=== PATIENT | female | born 1930 | race Caucasian/White ===

== ENCOUNTER 2020-09-29 13:51 | Inpatient (IN) | payer MEDICARE, OTHER ==
--- NOTE | 2020-09-29 14:12 | EDM.PDOC ---
ED HPI GENERAL MEDICAL PROBLEM - General Chief Complaint: Cardiovascular Problem Stated Complaint: SOB Time Seen by Provider: 09/29/20 13:56 Source of Information: Reports: Patient History Limitations: Reports: No Limitations - History of Present Illness INITIAL COMMENTS - FREE TEXT/NARRATIVE: 89-year-old female presents to the ED with complaints of feeling short of breath gradually worsening over the last 3 weeks. Associated orthopnea and PND. She denies feeling any sense of chest pain or discomfort. She does have a nonproductive cough intermittently. Feels dizzy lightheaded and short of breath. Really has not appreciating weakness in her lower extremities. She was at the walk-in clinic and they recognized an elevated irregular pulse and sent her probably to the ED. Patient lives alone at home attends her garden and she is very active. She states that something is not right. She has never had any similar problems in the past. Onset: Gradual Onset Date: 09/07/20 (Believe dyspnea started around 07 September.) Duration: Day(s):, Getting Worse Location: Reports: Chest (Primarily dyspnea even at rest worsened by exertion. Associated orthopnea and PND.) Quality: Reports: Other (Aleksandra even at rest.) Severity: Moderate Improves with: Reports: Rest (Who is at rest a little bit but the last 3 to 4 days it does not seem to get better even with resting.) Worsens with: Reports: Movement (It was getting worse on exertion but now it is worse with even minimal exertion such as walking to the bathroom.) Context: Reports: Other (Gradual onset of dyspnea over the last 3 weeks.). Denies: Activity, Exercise, Lifting, Sick Contact, Trauma Associated Symptoms: Reports: Cough, Loss of Appetite, Malaise (Unproductive), Nausea/Vomiting (For nausea no vomiting.), Shortness of Breath (Decrease in appetite.), Weakness (Generalized sense of weakness.). Denies: Confusion, Chest Pain, cough w sputum, Diaphoresis, Fever/Chills, Headaches, Rash, Seizure, Syncope Treatments HAND CEMENTER: Reports: Other (see below) (No recent changes to any of her medications.) - Related Data Allergies Allergy/AdvReac Type Severity Reaction Status Date / Time aspirin Allergy Mild Abdominal Verified 09/29/20 14:37 Pain Home Meds: Home Meds Alendronate [Fosamax] 70 mg PO WEEKLY 09/29/20 [History] Brimonidine Tartrate/Timolol [Combigan Eye Drops] 1 drop EYERT BID 09/29/20 [History] Levothyroxine [Synthroid] 50 mcg PO ACBREAKFAST 09/29/20 [History] Pantoprazole Sodium [Protonix] 40 mg PO DAILY 09/29/20 [History] Simvastatin 20 mg PO DAILY 09/29/20 [History] amLODIPine [Norvasc] 5 mg PO DAILY 09/29/20 [History] Past Medical History HEENT History: Reports: Glaucoma, Other (See Below) (glasses) Cardiovascular History: Reports: High Cholesterol, Hypertension, SOB on Ex ertion. 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 She is to smoke when she was a late teenager and early adult kearns.) Gastrointestinal History: Reports: GERD, Hiatal Hernia Genitourinary History: Denies: Acute Renal Failure, Diabetic Nephropathy, Hy dronephrosis Musculoskeletal History: Reports: Osteoarthritis, Osteoporosis Endocrine/Metabolic History: Reports: Hypothyroidism Social & Family History - Tobacco Use Tobacco Use Status *Q: Former Tobacco User (She used tobacco in her late teenage years and early adult kearns.) Tobacco Use Within Last Twelve Months: Cigarettes - Living Situation & Occupation Living situation: Reports: Occupation: Retired Social History Comment: Patient resides in her own home here in [place]. She is very active in her home and outside the home gardening and doing her yard. ED ROS GENERAL - Review of Systems Review Of Systems: See Below Constitutional: Reports: Malaise, Weakness, Fatigue, Decreased Appetite (Months worse than normal the last 3 weeks. They decreased appetite.). Denies: Fever, Chills HEENT: Reports: Glasses, Other (History of glaucoma and uses eyedrops daily.) Respiratory: Reports: Shortness of Breath, Cough. Denies: Wheezing (See history of present illness.), Pleuritic Chest Pain, Sputum, Hemoptysis Cardiovascular: Reports: Blood Pressure Problem, Orthopnea (Chronic hypertension). Denies: Chest Pain (Nonproductive), Claudication, Edema, Lightheadedness, Palpitations Endocrine: Reports: Fatigue (She is not aware of any palpitations.), Other (History of hypothyroidism and is on levothyroxine treatment.) GI/Abdominal: Reports: Other (History of GERD well-controlled with proton pump inhibitor.) : Reports: Frequency, Incontinence (There urgent continence.), Urgency Musculoskeletal: Reports: Neck Pain, Shoulder Pain, Back Pain, Joint Pain (Knees and hips at times.) Skin: Reports: No Symptoms Neurological: Reports: No Symptoms, Weakness. Denies: Confusion, Dizziness, Headache, Numbness, Syncope, Tingling, Difficulty Walking (Creased weakness as of late associate with dyspnea.) Psychiatric: Reports: No Symptoms Hematologic/Lymphatic: Reports: No Symptoms Immunologic: Reports: No Symptoms ED EXAM, GENERAL - Physical Exam Exam: See Below Exam Limited By: No Limitations General Appearance: Alert, WD/WN, Mild Distress (Patient is working a little hard to breathe.), Other (Blood pressure is is 121/102. Temperature was 36.3 degrees. Heart rate is atrial fibrillation with a rapid ventricular rate as high as 165/min. Respiratory was 18-22 with O2 sats of 90% room air. Patient was placed on oxygen 2 L/min by nasal cannula.) Eye Exam: Bilateral Eye: Normal Inspection (No blepharal pallor or scleral icterus.), PERRL Throat/Mouth: Normal Inspection, Normal Lips, Normal Oropharynx, Other (Patient has a venous varicosity right lower lip 8 mm in diameter.). No: Normal Teeth Head: Atraumatic, Normocephalic Neck: Normal Inspection, Limited Range of Motion (Patient has lost 10 degrees forward flexion 10 degrees extension 10 degrees lateral rotation and), Tender Lateral (Her bilateral cervical spine she states no worse than normal.). No: Supple, Full Range of Motion, Carotid Bruit, Lymphadenopathy (L), Lymphadenopath y (R) Respiratory/Chest: No Accessory Muscle Use, Respiratory Distress (Tachypnea at rest with O2 sats of 90% room air. Improved sats to 94% on oxygen at 2 L/min by nasal cannula.), Decreased Breath Sounds (Creased breath sounds to the lower 25% in lung fermin bilaterally.), Rales (Scattered). No: Lungs Clear, Rhonchi, Wheezing ( mild crackles both lung bases.) Cardiovascular: No JVD, No Murmur, Irregularly Irregular (Heart rate is atrial fibrillation on the monitor with a rapid ventricular rate as high as 165 bpm.). No: Regular Rate, Rhythm, No Edema, No Gallop Peripheral Pulses: 2+: Carotid (L), Carotid (R), Posterior Tibial (L), Posterior Tibial (R), Dorsalis Pedis (L), Dorsalis Pedis (R) GI/Abdominal: Normal Bowel Sounds, Soft, Non-Tender, No Organomegaly. No: No Mass, Pelvis Stable, Guarding, Rigid, Rebound, Tender Back Exam: Decreased Range of Motion, Other (Mild kyphosis thoracic spine with scoliosis of the thoracic and lumbar spine). No: Full Range of Motion, CVA Tenderness (L) ( with compensatory curves.), CVA Tenderness (R) Extremities: Normal Inspection, Pedal Edema (Pedal edema at the ankles.), Limited Range of Motion (Wrist range of motion with internal/external rotation of both hips and knees with osteoarthritic changes. Not real tender at this time) Neurological: Alert, Oriented, CN II-XII Intact, Normal Cognition Psychiatric: Normal Affect, Normal Mood Skin Exam: Warm, Dry, Intact, Normal Color, No Rash #1 Interpretation EKG Date: 09/29/20 Time: 14:04 Rhythm: A-Fib (With rate of 75 to 165/min) Rate (Beats/Min): 142 [place]: RAD-Right [place] Deviation (Mild right axis deviation 97 degrees) P-Wave: Variable QRS: Other (Q waves V1 and near Q wave V2 to V5. Consider old anteroseptal myocardial infarction.) ST-T: Other (Acute repolarization abnormality most prominent in leads V2 to V4 due to the rapid rate. Decreased voltage limb leads) QT: Prolonged (Moderately prolonged but skewed by rapid rate) EKG Interpretation Comments: Abnormal ECG Course - Vital Signs Last Recorded V/S: Last Vital Signs Temp 36.4 C 09/29/20 20:00 Pulse 92 09/29/20 18:00 Resp 18 09/29/20 20:00 BP 105/58 L 09/29/20 20:15 Pulse Ox 93 L 09/29/20 19:00 - Orders/Labs/Meds Orders: Active Orders 24 hr Category Date Time Status Cardiac Monitoring [RC] CONTINUOUS Care 09/29/20 16:21 Active Height and Weight [RC] 04 Care 09/29/20 16:21 Active Intake and Output [RC] 04,16 Care 09/29/20 16:21 Active Oxygen Therapy [RC] ASDIRECTED Care 09/29/20 14:10 Active Pulse Oximetry [RC] CONTINUOUS Care 09/29/20 16:21 Active RT BiPAP/CPAP [RC] ASDIRECTED Care 09/29/20 15:49 Active Up With Assistance [RC] ASDIRECTED Care 09/29/20 16:21 Active VTE/DVT Education [RC] 09 Care 09/29/20 16:21 Active PT Evaluation and Treatment [CONS] Routine Cons 09/29/20 16:21 Active Respiratory Care Assess and Treatment [CONS] Routine Cons 09/29/20 16:21 Active Heart Healthy Diet [DIET] Diet 09/29/20 Dinner Active Chest 1V Frontal [CR] Stat Exams 09/29/20 15:30 Taken Echo Comp wo Cont [US] Routine Exams 10/02/20 07:30 Ordered BASIC METABOLIC PANEL,BMP [CHEM] DAILY Lab 09/30/20 06:00 Ordered BASIC METABOLIC PANEL,BMP [CHEM] DAILY Lab 10/01/20 06:00 Ordered BASIC METABOLIC PANEL,BMP [CHEM] DAILY Lab 10/02/20 06:00 Ordered BASIC METABOLIC PANEL,BMP [CHEM] DAILY Lab 10/03/20 06:00 Ordered CBC WITH AUTO DIFF [HEME] DAILY Lab 09/30/20 06:00 Ordered CBC WITH AUTO DIFF [HEME] DAILY Lab 10/01/20 06:00 Ordered CBC WITH AUTO DIFF [HEME] DAILY Lab 10/02/20 06:00 Ordered CBC WITH AUTO DIFF [HEME] DAILY Lab 10/03/20 06:00 Ordered Acetaminophen [TylenoL] Med 09/29/20 16:21 Active 650 mg PO Q4H PRN Apixaban [Eliquis] Med 09/29/20 21:00 Active 2.5 mg PO BID Diltiazem [Cardizem] 100 mg Med 09/29/20 15:00 Active Sodium Chloride 0.9% [Normal Saline] 100 ml IV TITRATE Diltiazem [Cardizem] 100 mg Med 09/29/20 16:30 Active Sodium Chloride 0.9% [Normal Saline] 100 ml IV TITRATE Ondansetron [Zofran] Med 09/29/20 16:21 Active 4 mg IV Q4H PRN Sodium Chloride 0.9% [Saline Flush] Med 09/29/20 14:11 Active 10 ml FLUSH ASDIRECTED PRN Peripheral IV Insertion Adult [OM.PC] Stat Oth 09/29/20 14:10 Ordered Resuscitation Status Routine Resus Stat 09/29/20 16:21 Ordered Medication Orders Acetaminophen (Acetaminophen 325 Mg Tab) 650 mg PO Q4H PRN PRN Reason: Pain (Mild 1-3)/fever Apixaban (Apixaban 2.5 Mg Tab) 2.5 mg PO BID LINDA Last Admin: 09/29/20 20:32 Dose: 2.5 mg Documented by: LENY Furosemide (Furosemide 20 Mg/2 Ml Vial) 20 mg IVPUSH BID LINDA Diltiazem HCl 100 mg/ Sodium (Chloride) 100 mls @ 10 mls/hr IV TITRATE LINDA; Protocol Last Titration: 09/29/20 20:00 Dose: 0 mg/hr, 0 mls/hr Documented by: Titration: 09/29/20 19:00 Dose: 5 mg/hr, 5 mls/hr Documented by: Admin: 09/29/20 15:00 Dose: 10 mg/hr, 10 mls/hr Documented by: ETHAN Diltiazem HCl 100 mg/ Sodium (Chloride) 100 mls @ 5 mls/hr IV TITRATE LINDA; Protocol Ceftriaxone Sodium 1 gm/ (Sodium Chloride) 100 mls @ 200 mls/hr IV Q24H LINDA Last Admin: 09/29/20 18:05 Dose: 200 mls/hr Documented by: UNIQUE Levothyroxine Sodium (Levothyroxine 50 Mcg Tab) 50 mcg PO ACBREAKFAST LINDA Metoprolol Tartrate (Metoprolol Tartrate 5 Mg/5 Ml Sdv) 5 mg IVPUSH Q6H PRN PRN Reason: Tachycardia Non-Formulary Medication (Brimonidine Tartrate/Timolol [Combigan 0.2%-0.5% Eye Drops]) 1 drop OP BID [facility] Last Admin: 09/29/20 20:32 Dose: Not Given Documented by: LENY Non-Formulary Medication (Pantoprazole Sodium) 40 mg PO DAILY LINDA Ondansetron HCl (Ondansetron 4 Mg/2 Ml Sdv) 4 mg IV Q4H PRN PRN Reason: Nausea/Vomiting Sodium Chloride (Sodium Chloride 0.9% 10 Ml Syringe) 10 ml FLUSH ASDIRECTED PRN PRN Reason: Keep Vein Open Last Admin: 09/29/20 14:14 Dose: 10 ml Documented by: ETHAN Labs: Laboratory Tests 09/29/20 09/29/20 09/29/20 Range/Units 14:00 14:00 14:00 WBC 9.04 (3.98-10.04) K/mm3 RBC 4.36 (3.98-5.22) M/mm3 Hgb 13.4 (11.2-15.7) gm/dl Hct 41.5 (34.1-44.9) % MCV 95.2 H (79.4-94.8) fl MCH 30.7 (25.6-32.2) pg MCHC 32.3 (32.2-35.5) g/dl RDW Std Deviation 49.1 H (36.4-46.3) fL Plt Count 275 (182-369) K/mm3 MPV 11.2 (9.4-12.3) fl Neut % (Auto) 75.9 H (34.0-71.1) % Lymph % (Auto) 12.9 L (19.3-51.7) % [place] % (Auto) 9.3 (4.7-12.5) % Eos % (Auto) 1.5 (0.7-5.8) Baso % (Auto) 0.2 (0.1-1.2) % Neut # (Auto) 6.85 H (1.56-6.13) K/mm3 Lymph # (Auto) 1.17 L (1.18-3.74) K/mm3 [place] # (Auto) 0.84 H (0.24-0.36) K/mm3 Eos # (Auto) 0.14 (0.04-0.36) K/mm3 Baso # (Auto) 0.02 (0.01-0.08) K/mm3 PT 10.9 (9.7-12.0) SECONDS INR 1.02 APTT (21.7-31.4) SECONDS Puncture Site ABG pH (7.35-7.45) ABG pCO2 (35.0-45.0) mmHg ABG pO2 (80.0-100.0) mmHg ABG HCO3 (22.0-26.0) meq/L ABG O2 Saturation (96.0-97.0) % ABG Base Excess (-2-2.0) Wally Test O2 Delivery Device Oxygen Flow Rate Sodium 138 (136-145) mEq/L Potassium 5.0 (3.5-5.1) mEq/L Chloride 105 (98-107) mEq/L Carbon Dioxide 24 (21-32) mEq/L Anion Gap 14.0 (5-15) BUN 27 H (7-18) mg/dL Creatinine 1.4 H (0.55-1.02) mg/dL Est Cr Clr Drug Dosing 19.95 mL/min Estimated GFR (MDRD) 35 (>60) mL/min BUN/Creatinine Ratio 19.3 H (14-18) Glucose 132 H (70-99) mg/dL Lactic Acid (0.4-2.0) mmol/L Calcium 9.1 (8.5-10.1) mg/dL Magnesium 2.3 (1.8-2.4) mg/dL Total Bilirubin 1.5 H (0.2-1.0) mg/dL AST 30 (15-37) U/L ALT 44 (14-59) U/L Alkaline Phosphatase 58 (46-116) U/L CK-MB (CK-2) 3.0 (0-3.6) ng/ml Troponin I < 0.017 (0.00-0.056) ng/mL C-Reactive Protein <0.2 (<1.0) mg/dL NT-Pro-B Natriuret Pep (0-450) pg/mL Total Protein 7.2 (6.4-8.2) g/dl Albumin 3.8 (3.4-5.0) g/dl Globulin 3.4 gm/dL Albumin/Globulin Ratio 1.1 (1-2) TSH 3rd Generation (0.358-3.74) uIU/mL Urine Color (Yellow) Urine Appearance (Clear) Urine pH (5.0-8.0) Ur Specific [place] (1.005-1.030) Urine Protein (Negative) Urine Glucose (UA) (Negative) Urine Ketones (Negative) Urine Occult Blood (Negative) Urine Nitrite (Negative) Urine Bilirubin (Negative) Urine Urobilinogen (0.2-1.0) Ur Leukocyte Esterase (Negative) U Hyaline Cast (Auto) (0-5) /lpf Urine RBC (0-5) /hpf Urine WBC (0-5) /hpf Ur Epithelial Cells (0-5) /hpf Urine Bacteria (FEW) /hpf Urine Mucus (FEW) /hpf SARS-CoV-2 RNA (CLAUDE) (NEGATIVE) 09/29/20 09/29/20 09/29/20 Range/Units 14:00 14:00 14:09 WBC (3.98-10.04) K/mm3 RBC (3.98-5.22) M/mm3 Hgb (11.2-15.7) gm/dl Hct (34.1-44.9) % MCV (79.4-94.8) fl MCH (25.6-32.2) pg MCHC (32.2-35.5) g/dl RDW Std Deviation (36.4-46.3) fL Plt Count (182-369) K/mm3 MPV (9.4-12.3) fl Neut % (Auto) (34.0-71.1) % Lymph % (Auto) (19.3-51.7) % [place] % (Auto) (4.7-12.5) % Eos % (Auto) (0.7-5.8) Baso % (Auto) (0.1-1.2) % Neut # (Auto) (1.56-6.13) K/mm3 Lymph # (Auto) (1.18-3.74) K/mm3 [place] # (Auto) (0.24-0.36) K/mm3 Eos # (Auto) (0.04-0.36) K/mm3 Baso # (Auto) (0.01-0.08) K/mm3 PT (9.7-12.0) SECONDS INR APTT (21.7-31.4) SECONDS Puncture Site ABG pH (7.35-7.45) ABG pCO2 (35.0-45.0) mmHg ABG pO2 (80.0-100.0) mmHg ABG HCO3 (22.0-26.0) meq/L ABG O2 Saturation (96.0-97.0) % ABG Base Excess (-2-2.0) Wally Test O2 Delivery Device Oxygen Flow Rate Sodium (136-145) mEq/L Potassium (3.5-5.1) mEq/L Chloride (98-107) mEq/L Carbon Dioxide (21-32) mEq/L Anion Gap (5-15) BUN (7-18) mg/dL Creatinine (0.55-1.02) mg/dL Est Cr Clr Drug Dosing mL/min Estimated GFR (MDRD) (>60) mL/min BUN/Creatinine Ratio (14-18) Glucose (70-99) mg/dL Lactic Acid (0.4-2.0) mmol/L Calcium (8.5-10.1) mg/dL Magnesium (1.8-2.4) mg/dL Total Bilirubin (0.2-1.0) mg/dL AST (15-37) U/L ALT (14-59) U/L Alkaline Phosphatase (46-116) U/L CK-MB (CK-2) (0-3.6) ng/ml Troponin I (0.00-0.056) ng/mL C-Reactive Protein (<1.0) mg/dL NT-Pro-B Natriuret Pep 5453 H (0-450) pg/mL Total Protein (6.4-8.2) g/dl Albumin (3.4-5.0) g/dl Globulin gm/dL Albumin/Globulin Ratio (1-2) TSH 3rd Generation 5.352 H (0.358-3.74) uIU/mL Urine Color (Yellow) Urine Appearance (Clear) Urine pH (5.0-8.0) Ur Specific [place] (1.005-1.030) Urine Protein (Negative) Urine Glucose (UA) (Negative) Urine Ketones (Negative) Urine Occult Blood (Negative) Urine Nitrite (Negative) Urine Bilirubin (Negative) Urine Urobilinogen (0.2-1.0) Ur Leukocyte Esterase (Negative) U Hyaline Cast (Auto) (0-5) /lpf Urine RBC (0-5) /hpf Urine WBC (0-5) /hpf Ur Epithelial Cells (0-5) /hpf Urine Bacteria (FEW) /hpf Urine Mucus (FEW) /hpf SARS-CoV-2 RNA (CLAUDE) Negative (NEGATIVE) 09/29/20 09/29/20 09/29/20 Range/Units 14:22 15:18 15:20 WBC (3.98-10.04) K/mm3 RBC (3.98-5.22) M/mm3 Hgb (11.2-15.7) gm/dl Hct (34.1-44.9) % MCV (79.4-94.8) fl MCH (25.6-32.2) pg MCHC (32.2-35.5) g/dl RDW Std Deviation (36.4-46.3) fL Plt Count (182-369) K/mm3 MPV (9.4-12.3) fl Neut % (Auto) (34.0-71.1) % Lymph % (Auto) (19.3-51.7) % [place] % (Auto) (4.7-12.5) % Eos % (Auto) (0.7-5.8) Baso % (Auto) (0.1-1.2) % Neut # (Auto) (1.56-6.13) K/mm3 Lymph # (Auto) (1.18-3.74) K/mm3 [place] # (Auto) (0.24-0.36) K/mm3 Eos # (Auto) (0.04-0.36) K/mm3 Baso # (Auto) (0.01-0.08) K/mm3 PT (9.7-12.0) SECONDS INR APTT (21.7-31.4) SECONDS Puncture Site Lt radial ABG pH 7.42 (7.35-7.45) ABG pCO2 29.1 L (35.0-45.0) mmHg ABG pO2 50.0 L (80.0-100.0) mmHg ABG HCO3 18.6 L (22.0-26.0) meq/L ABG O2 Saturation 50.0 L (96.0-97.0) % ABG Base Excess -4.3 L (-2-2.0) Wally Test Positive O2 Delivery Device Nasal cannula Oxygen Flow Rate 6.0 Sodium (136-145) mEq/L Potassium (3.5-5.1) mEq/L Chloride (98-107) mEq/L Carbon Dioxide (21-32) mEq/L Anion Gap (5-15) BUN (7-18) mg/dL Creatinine (0.55-1.02) mg/dL Est Cr Clr Drug Dosing mL/min Estimated GFR (MDRD) (>60) mL/min BUN/Creatinine Ratio (14-18) Glucose (70-99) mg/dL Lactic Acid 1.1 (0.4-2.0) mmol/L Calcium (8.5-10.1) mg/dL Magnesium (1.8-2.4) mg/dL Total Bilirubin (0.2-1.0) mg/dL AST (15-37) U/L ALT (14-59) U/L Alkaline Phosphatase (46-116) U/L CK-MB (CK-2) (0-3.6) ng/ml Troponin I (0.00-0.056) ng/mL C-Reactive Protein (<1.0) mg/dL NT-Pro-B Natriuret Pep (0-450) pg/mL Total Protein (6.4-8.2) g/dl Albumin (3.4-5.0) g/dl Globulin gm/dL Albumin/Globulin Ratio (1-2) TSH 3rd Generation (0.358-3.74) uIU/mL Urine Color Dark yellow (Yellow) Urine Appearance Slt cloudy H (Clear) Urine pH 5.5 (5.0-8.0) Ur Specific [place] > or = 1.030 (1.005-1.030) Urine Protein 2+ H (Negative) Urine Glucose (UA) Trace H (Negative) Urine Ketones Negative (Negative) Urine Occult Blood 2+ H (Negative) Urine Nitrite Negative (Negative) Urine Bilirubin 1+ H (Negative) Urine Urobilinogen 0.2 (0.2-1.0) Ur Leukocyte Esterase Trace H (Negative) U Hyaline Cast (Auto) 20-30 H (0-5) /lpf Urine RBC 20-30 H (0-5) /hpf Urine WBC 20-30 H (0-5) /hpf Ur Epithelial Cells 0-5 (0-5) /hpf Urine Bacteria Many H (FEW) /hpf Urine Mucus Many H (FEW) /hpf SARS-CoV-2 RNA (CLAUDE) (NEGATIVE) 09/29/20 Range/Units 16:23 WBC (3.98-10.04) K/mm3 RBC (3.98-5.22) M/mm3 Hgb (11.2-15.7) gm/dl Hct (34.1-44.9) % MCV (79.4-94.8) fl MCH (25.6-32.2) pg MCHC (32.2-35.5) g/dl RDW Std Deviation (36.4-46.3) fL Plt Count (182-369) K/mm3 MPV (9.4-12.3) fl Neut % (Auto) (34.0-71.1) % Lymph % (Auto) (19.3-51.7) % [place] % (Auto) (4.7-12.5) % Eos % (Auto) (0.7-5.8) Baso % (Auto) (0.1-1.2) % Neut # (Auto) (1.56-6.13) K/mm3 Lymph # (Auto) (1.18-3.74) K/mm3 [place] # (Auto) (0.24-0.36) K/mm3 Eos # (Auto) (0.04-0.36) K/mm3 Baso # (Auto) (0.01-0.08) K/mm3 PT (9.7-12.0) SECONDS INR APTT 23.5 (21.7-31.4) SECONDS Puncture Site ABG pH (7.35-7.45) ABG pCO2 (35.0-45.0) mmHg ABG pO2 (80.0-100.0) mmHg ABG HCO3 (22.0-26.0) meq/L ABG O2 Saturation (96.0-97.0) % ABG Base Excess (-2-2.0) Wally Test O2 Delivery Device Oxygen Flow Rate Sodium (136-145) mEq/L Potassium (3.5-5.1) mEq/L Chloride (98-107) mEq/L Carbon Dioxide (21-32) mEq/L Anion Gap (5-15) BUN (7-18) mg/dL Creatinine (0.55-1.02) mg/dL Est Cr Clr Drug Dosing mL/min Estimated GFR (MDRD) (>60) mL/min BUN/Creatinine Ratio (14-18) Glucose (70-99) mg/dL Lactic Acid (0.4-2.0) mmol/L Calcium (8.5-10.1) mg/dL Magnesium (1.8-2.4) mg/dL Total Bilirubin (0.2-1.0) mg/dL AST (15-37) U/L ALT (14-59) U/L Alkaline Phosphatase (46-116) U/L CK-MB (CK-2) (0-3.6) ng/ml Troponin I (0.00-0.056) ng/mL C-Reactive Protein (<1.0) mg/dL NT-Pro-B Natriuret Pep (0-450) pg/mL Total Protein (6.4-8.2) g/dl Albumin (3.4-5.0) g/dl Globulin gm/dL Albumin/Globulin Ratio (1-2) TSH 3rd Generation (0.358-3.74) uIU/mL Urine Color (Yellow) Urine Appearance (Clear) Urine pH (5.0-8.0) Ur Specific [place] (1.005-1.030) Urine Protein (Negative) Urine Glucose (UA) (Negative) Urine Ketones (Negative) Urine Occult Blood (Negative) Urine Nitrite (Negative) Urine Bilirubin (Negative) Urine Urobilinogen (0.2-1.0) Ur Leukocyte Esterase (Negative) U Hyaline Cast (Auto) (0-5) /lpf Urine RBC (0-5) /hpf Urine WBC (0-5) /hpf Ur Epithelial Cells (0-5) /hpf Urine Bacteria (FEW) /hpf Urine Mucus (FEW) /hpf SARS-CoV-2 RNA (CLAUDE) (NEGATIVE) Meds: Medications Generic Name Dose Route Start Last Admin Trade Name Freq PRN Reason Stop Dose Admin Acetaminophen 650 mg 09/29/20 16:21 Acetaminophen 325 Mg Tab PO Q4H PRN Pain (Mild 1-3)/fever Apixaban 2.5 mg 09/29/20 21:00 09/29/20 20:32 Apixaban 2.5 Mg Tab PO 2.5 mg BID LINDA Administration Furosemide 20 mg 09/30/20 09:00 Furosemide 20 Mg/2 Ml Vial IVPUSH BID LINDA Diltiazem HCl 100 mg/ Sodium 100 mls @ 10 mls/hr 09/29/20 15:00 09/29/20 20:00 Chloride IV 0 mg/hr TITRATE LINDA 0 mls/hr Titration Protocol 10 MG/HR Diltiazem HCl 100 mg/ Sodium 100 mls @ 5 mls/hr 09/29/20 16:30 Chloride IV TITRATE LINDA Protocol 5 MG/HR Ceftriaxone Sodium 1 gm/ 100 mls @ 200 mls/hr 09/29/20 18:00 09/29/20 18:05 Sodium Chloride IV 200 mls/hr Q24H LINDA Administration Levothyroxine Sodium 50 mcg 09/30/20 06:00 Levothyroxine 50 Mcg Tab PO ACBREAKFAST LINDA Metoprolol Tartrate 5 mg 09/29/20 16:27 Metoprolol Tartrate 5 Mg/5 Ml Sdv IVPUSH Q6H PRN Tachycardia Non-Formulary Medication 1 drop 09/29/20 21:00 09/29/20 20:32 Brimonidine Tartrate/Timolol [Combigan 0.2%-0.5% Eye Drops] OP Not Given BID LINDA Non-Formulary Medication 40 mg 09/30/20 09:00 Pantoprazole Sodium PO DAILY LINDA Ondansetron HCl 4 mg 09/29/20 16:21 Ondansetron 4 Mg/2 Ml Sdv IV Q4H PRN Nausea/Vomiting Sodium Chloride 10 ml 09/29/20 14:11 09/29/20 14:14 Sodium Chloride 0.9% 10 Ml Syringe FLUSH 10 ml ASDIRECTED PRN Administration Keep Vein Open Discontinued Medications Generic Name Dose Route Start Last Admin Trade Name Freq PRN Reason Stop Dose Admin Diltiazem HCl 10 mg 09/29/20 14:46 09/29/20 14:58 Diltiazem 50 Mg/10 Ml Sdv IVPUSH 09/29/20 14:47 10 mg ONETIME ONE Administration Furosemide Confirm 09/29/20 15:22 09/29/20 15:39 Furosemide 40 Mg/4 Ml Vial Administered 09/29/20 15:23 Not Given Dose 40 mg .ROUTE .STK-MED ONE Furosemide 40 mg 09/29/20 15:24 09/29/20 15:26 Furosemide 40 Mg/4 Ml Vial IVPUSH 09/29/20 15:25 40 mg NOW ONE Administration - Radiology Interpretation Free Text/Narrative:: 89-year-old female presents to the ED at the request of the walk-in clinic at [facility]. She went therapy claiming that she had increased shortness of breath over the last 3 weeks and something must be wrong. Evaluation revealed that her heart rate was elevated in the 140s to 150s and irregular suggesting underlying atrial fibrillation. No further investigation was completed and she was sent to the ED for further evaluation. On evaluation here she is indeed mildly hypoxic with O2 sats of 90% room air. She did smoke a bit when she was young and teenager and into early adult kearns. She has not smoked since that time. Clinically she has crackles both lung fermin. She has statement of COPD with slightly increased AP diameter of her chest. She denies sputum production but does have an intermittent nonproductive cough. No chest pain at any time in the last month or so. No past history of myocardial infarction or known coronary artery disease. She is indeed in atrial fibrillation up to 160 bpm. Plan she will receive Cardizem 10 mg IV once IV has been established. Tentatively she was started on a Cardizem drip at 10 mg/h. She will have a portable chest x-ray routine labs including cardiac markers and of course a BNP and serum magnesium and TSH. - Re-Assessments/Exams Free Text/Narrative Re-Assessment/Exam: 09/29/20 15:00 : CXR reveals moderate cardiomegally. Mild bilateral hyperinflation. Mild to moderate increaed vaculature in the presence of underlying emphysema --noted more so to the RLL --made more prominent as she is roatated to the Lt. does have atelectasis of left lung base. Questionable Lt pleural effusion as there is minimal blunting of the left costophrenic angle. Upper mediastinum is normal. No pneumothorax. On the side is an old healed right-sided rib fractures are seen within the right chest. Scoliosis noted within the spine with mild scattered degenerative changes. 09/29/20 15:29 White count is 9.04 with slight left shift of 75.9% neutrophils. Hemoglobin is 13.4 with hematocrit of 41.5. MCV is slightly elevated at 95.2. Platelet count is normal at 275,000. PT is 10.9 with an INR of 1.02. Sodium 138 with a potassium slightly elevated at 5.0. Chloride 105 with a bicarb 24. Anion gap is 14.0. BUN is 27 with a creatinine of 1.4. Estimated GFR is 35. Glucose 132. Lactic acid 1.1. Calcium 9.1. Magnesium 2.3. Bilirubin mildly elevated at 1.5. AST is 30 with an ALT of 44 and an alk phosphatase of 58. CK- MB fraction is 3.0 with a troponin I of less than 0.017. C-reactive protein is less than 0.2. BNP is 5453. Total protein is 7.2 with an albumin fraction of 3.8. Globulin is 3.4. TSH is elevated at 5.352 indicating subclinical hypothyroidism. COVID-19 screen is negative. Patient has developed worsening of her tachypnea and dyspnea. Heart rate has come under control at 99 200 bpm remaining in atrial fibrillation. O2 sats are down as low as 83% on 6 L/min by nasal cannula. Stat ABG and chest x-ray ordered. Also Lasix 40 mg IV stat. 09/29/20 15:34 Repeat portable chest x-ray reveals minimal change. There is perhaps a minimal pleural effusion appreciated in the right lung base at this time. No pneumothorax present. Reportedly O2 sats dropped to 70% in her room. She was switched to a nonrebreather mask at 15 L/min and achieved O2 sats of 94% and is still able to talk. Preparations were made for possible intubation on an urgent basis. I believe that slowing her heart rate down with Cardizem 10 mg IV bolus precipitated acute worsening of her congestive failure due to dropping both her preload and afterload. Blood pressure remains adequate at 110/79 but is much lower course than her normal systolic blood pressure 150-160min. ABGs have been ordered and done but are not yet reported. 09/29/20 15:44 Urinalysis shows slightly cloudy urine with 2+ protein 2+ occult blood 1+ bilirubin and trace of leukocyte esterase. There is 20-30 hyaline casts per high-power field 20-30 red blood cells per high-power field and 20-30 white blood cells per high-power field many bacteria appreciated. A urine culture has been ordered. Patient is asymptomatic at this time and will not be given antibiotics. Had ABGs done on 6 L/min by nasal cannula reveals a pH of 7.42. PCO2 was 29.1 with a PO2 of 50. O2 sats were 82.7%. 09/29/20 15:46 Patient is feeling much improved on the BiPAP at 12 over 6 mmHg. O2 sats are staying around 90 to 91%. She is able to talk and her color is improved. She does not feel near as just to make either. I spoke with Dr. Salazar on-call hospitalist and he will see her in the intensive care unit as soon as we can get her over there. She is on Cardizem 10 mg/hr and maintaining a blood pressure of 128/84. Heart rate is 78/min. He remains in atrial fibrillation. O2 sats 90 to 91% on BiPAP. Noted labs did reveal a elevated TSH indicating subclinical hypothyroidism but enough to require thyroid replacement hormone due to her age. 09/29/20 16:26 O2 sats are improved to 96% at this time. Heart rate is 87 and irregularily irregular with atrial fibrillation. Blood pressure has not been recorded for the last 10 minutes. She will be transferred to the intensive care unit at this time. Departure - Departure Time of Disposition: 16:50 Disposition: Admitted As Inpatient 68 Reason for Transfer *Q: Other Condition: Serious Clinical Impression: New onset atrial fibrillation, Subclinical hypothyroidism Congestive heart failure Qualifiers: Heart failure type: unspecified Heart failure chronicity: unspecified Qualified Code(s): I50.9 - Heart failure, unspecified Critical Care Note - Critical Care Note Total Time (mins): 20 (Patient's condition acutely decompensated within 20 minutes of receiving Cardizem 10 mg IV bolus. She appeared to develop sudden onset of's overwhelming dyspnea with a drop in her O2 sats to 85 and then as low as 70%. Was felt that the Cardizem dropped her preload and afterload precipitating worsening of her congestive failure. She has been likely dependent on a elevated heart rate of atrial fibrillation for several weeks.) Sepsis Event Note (ED) - Focused Exam Vital Signs: Vital Signs Temp Pulse Resp BP Pulse Ox 09/29/20 15:45 88 20 115/82 88 L 09/29/20 15:42 84 24 H 92 L 09/29/20 15:35 90 30 H 131/115 H 96 09/29/20 15:30 93 30 H 110/79 84 L 09/29/20 15:00 88 24 H 101/74 90 L 09/29/20 14:45 118 H 20 100/71 91 L 09/29/20 14:12 123 H 27 H 111/99 H 94 L 09/29/20 13:56 36.3 C 154 H 18 121/102 H 90 L - My Orders Last 24 Hours: My Active Orders 09/29/20 14:10 Oxygen Therapy [RC] ASDIRECTED Peripheral IV Insertion Adult [OM.PC] Stat 09/29/20 14:11 Sodium Chloride 0.9% [Saline Flush] 10 ml FLUSH ASDIRECTED PRN 09/29/20 15:00 Diltiazem [Cardizem] 100 mg Sodium Chloride 0.9% [Normal Saline] 100 ml IV TITRATE 09/29/20 15:30 Chest 1V Frontal [CR] Stat 09/29/20 15:49 RT BiPAP/CPAP [RC] ASDIRECTED - Assessment/Plan Last 24 Hours: My Active Orders 09/29/20 14:10 Oxygen Therapy [RC] ASDIRECTED Peripheral IV Insertion Adult [OM.PC] Stat 09/29/20 14:11 Sodium Chloride 0.9% [Saline Flush] 10 ml FLUSH ASDIRECTED PRN 09/29/20 15:00 Diltiazem [Cardizem] 100 mg Sodium Chloride 0.9% [Normal Saline] 100 ml IV TITRATE 09/29/20 15:30 Chest 1V Frontal [CR] Stat 09/29/20 15:49 RT BiPAP/CPAP [RC] ASDIRECTED
[2020-09-29] MEDS: Sodium Chloride 0.9% 10 ML Syringe FLUSH PRN (14:14)
--- NOTE | 2020-09-29 14:29 | CR ---
Chest: Portable view of the chest was obtained. Comparison: No prior chest imaging is available. Diffuse increased lung markings are noted. Slight atelectasis is seen within the left lung base. Questionable small left-sided pleural effusion is seen. Heart is felt to be minimally prominent. Upper mediastinum is normal. Old healed right-sided rib fractures are seen within the right chest. Scoliosis is noted within the spine with mild scattered degenerative change. Impression: 1. Findings as described above are suspicious for mild CHF. Please correlate if this matches clinically. 2. Slight atelectasis within the left lung base. 3. Other findings which are chronic as noted above. Diagnostic code #3
[2020-09-29] MEDS ORDERED: Diltiazem 50 MG/10 ML SDV IVPUSH ONE (14:46)
[2020-09-29] MEDS ORDERED: Diltiazem 100 MG in Sodium Chloride 0.9% 100 ML IV SCH ×2 (15:00→16:30)
[2020-09-29] MEDS ORDERED: Furosemide 40 MG/4 ML VIAL ONE (15:22)
[2020-09-29] MEDS ORDERED: Furosemide 40 MG/4 ML VIAL IVPUSH ONE (15:24)
[2020-09-29] MEDS ORDERED: Ondansetron 4 MG/2 ML SDV IV PRN (16:21)
[2020-09-29] MEDS ORDERED: Acetaminophen 325 MG Tab PO PRN (16:21)
--- NOTE | 2020-09-29 17:02 | PCM.HP.2 ---
H&P History of Present Illness - General Date of Service: 09/29/20 Admit Problem/Dx: Admission Diagnosis/Problem Admission Diagnosis/Problem Atrial fibrillation with rapid ventricular response Source of Information: Patient - History of Present Illness Initial Comments - Free Text/Narative: This is a 89F presenting for evaluation of dizziness. For the last 3 weeks she endorses generalized weakness and fatigue. She has dry cough. She endorses SOB and orthopnea. Denies chest pain, palpitations, nausea, vomiting, fever. She presented to ED today and was noted to be in Afib w/RVR. she was hypoxic and placed on BIPAP. CXR concerning for cardiomegaly. Notable labs included normal lactate. BNP elevated. Troponin WNL. She was given IV diltiazem and 40 mg IV lasix and admitted for further evaluation. She states she feels SOB has improved with BIPAP. Denies recent fall, headache, dizziness has improved. - Related Data Allergies/Adverse Reactions: Allergies Allergy/AdvReac Type Severity Reaction Status Date / Time aspirin Allergy Mild Abdominal Verified 09/29/20 14:37 Pain Home Medications: Home Meds Alendronate [Fosamax] 70 mg PO WEEKLY 09/29/20 [History] Brimonidine Tartrate/Timolol [Combigan Eye Drops] 1 drop EYERT BID 09/29/20 [History] Levothyroxine [Synthroid] 50 mcg PO ACBREAKFAST 09/29/20 [History] Pantoprazole Sodium [Protonix] 40 mg PO DAILY 09/29/20 [History] Simvastatin 20 mg PO DAILY 09/29/20 [History] amLODIPine [Norvasc] 5 mg PO DAILY 09/29/20 [History] Past Medical History HEENT History: Reports: Cataract, Impaired Vision Cardiovascular History: Reports: Hypertension Gastrointestinal History: Reports: GERD Other Musculoskeletal History: osteopenia Psychiatric History: Reports: Anxiety Endocrine/Metabolic History: Reports: Hypothyroidism Oncologic (Cancer) History: Reports: Colon - Infectious Disease History Infectious Disease History: Reports: Chicken Pox - Past Surgical History HEENT Surgical History: Reports: Cataract Surgery GI Surgical History: Reports: Appendectomy, Colon, Colonoscopy Social & Family History - Tobacco Use Tobacco Use Status *Q: Former Tobacco User Used Tobacco, but Quit: Yes Month/Year Tobacco Last Used: 02/1961 - Caffeine Use Caffeine Use: Reports: None - Recreational Drug Use Recreational Drug Use: No H&P Review of Systems - Review of Systems: Review Of Systems: Comprehensive ROS is negative, except as noted in HPI. Exam - Exam Exam: See Below - Vital Signs Vital Signs: Last Vital Signs Temp 97.3 F 09/29/20 13:56 Pulse 88 09/29/20 15:45 Resp 20 09/29/20 15:45 BP 115/82 09/29/20 15:45 Pulse Ox 88 L 09/29/20 15:45 Weight: 121 lb - Exam General: Alert, Oriented, Mild Distress HEENT: EOMI, Nares Patent Neck: Supple Lungs: Decreased Breath Sounds, Crackles Cardiovascular: Irregular Rhythm, Tachycardia GI/Abdominal Exam: Soft, Non-Tender, No Distention Back Exam: Normal Inspection Extremities: Normal Inspection, No Pedal Edema Skin: Warm, Dry, Intact Neurological: Cranial Nerves Intact, Normal Speech Neuro Extensive - Mental Status: Alert, Oriented x3, Normal Mood/Affect Neuro Extensive - Motor, Sensory, Reflexes: CN II-XII Intact Psychiatric: Alert, Normal Affect, Normal Mood - Patient Data Lab Results Last 24 hrs: Laboratory Results - last 24 hr 09/29/20 09/29/20 09/29/20 Range/Units 14:00 14:00 14:00 WBC 9.04 (3.98-10.04) K/mm3 RBC 4.36 (3.98-5.22) M/mm3 Hgb 13.4 (11.2-15.7) gm/dl Hct 41.5 (34.1-44.9) % MCV 95.2 H (79.4-94.8) fl MCH 30.7 (25.6-32.2) pg MCHC 32.3 (32.2-35.5) g/dl RDW Std Deviation 49.1 H (36.4-46.3) fL Plt Count 275 (182-369) K/mm3 MPV 11.2 (9.4-12.3) fl Neut % (Auto) 75.9 H (34.0-71.1) % Lymph % (Auto) 12.9 L (19.3-51.7) % [place] % (Auto) 9.3 (4.7-12.5) % Eos % (Auto) 1.5 (0.7-5.8) Baso % (Auto) 0.2 (0.1-1.2) % Neut # (Auto) 6.85 H (1.56-6.13) K/mm3 Lymph # (Auto) 1.17 L (1.18-3.74) K/mm3 [place] # (Auto) 0.84 H (0.24-0.36) K/mm3 Eos # (Auto) 0.14 (0.04-0.36) K/mm3 Baso # (Auto) 0.02 (0.01-0.08) K/mm3 PT 10.9 (9.7-12.0) SECONDS INR 1.02 APTT (21.7-31.4) SECONDS Puncture Site ABG pH (7.35-7.45) ABG pCO2 (35.0-45.0) mmHg ABG pO2 (80.0-100.0) mmHg ABG HCO3 (22.0-26.0) meq/L ABG O2 Saturation (96.0-97.0) % ABG Base Excess (-2-2.0) Wally Test O2 Delivery Device Oxygen Flow Rate Sodium 138 (136-145) mEq/L Potassium 5.0 (3.5-5.1) mEq/L Chloride 105 (98-107) mEq/L Carbon Dioxide 24 (21-32) mEq/L Anion Gap 14.0 (5-15) BUN 27 H (7-18) mg/dL Creatinine 1.4 H (0.55-1.02) mg/dL Est Cr Clr Drug Dosing 19.95 mL/min Estimated GFR (MDRD) 35 (>60) mL/min BUN/Creatinine Ratio 19.3 H (14-18) Glucose 132 H (70-99) mg/dL Lactic Acid (0.4-2.0) mmol/L Calcium 9.1 (8.5-10.1) mg/dL Magnesium 2.3 (1.8-2.4) mg/dL Total Bilirubin 1.5 H (0.2-1.0) mg/dL AST 30 (15-37) U/L ALT 44 (14-59) U/L Alkaline Phosphatase 58 (46-116) U/L CK-MB (CK-2) 3.0 (0-3.6) ng/ml Troponin I < 0.017 (0.00-0.056) ng/mL C-Reactive Protein <0.2 (<1.0) mg/dL NT-Pro-B Natriuret Pep (0-450) pg/mL Total Protein 7.2 (6.4-8.2) g/dl Albumin 3.8 (3.4-5.0) g/dl Globulin 3.4 gm/dL Albumin/Globulin Ratio 1.1 (1-2) TSH 3rd Generation (0.358-3.74) uIU/mL Urine Color (Yellow) Urine Appearance (Clear) Urine pH (5.0-8.0) Ur Specific [place] (1.005-1.030) Urine Protein (Negative) Urine Glucose (UA) (Negative) Urine Ketones (Negative) Urine Occult Blood (Negative) Urine Nitrite (Negative) Urine Bilirubin (Negative) Urine Urobilinogen (0.2-1.0) Ur Leukocyte Esterase (Negative) U Hyaline Cast (Auto) (0-5) /lpf Urine RBC (0-5) /hpf Urine WBC (0-5) /hpf Ur Epithelial Cells (0-5) /hpf Urine Bacteria (FEW) /hpf Urine Mucus (FEW) /hpf SARS-CoV-2 RNA (CLAUDE) (NEGATIVE) 09/29/20 09/29/20 09/29/20 Range/Units 14:00 14:00 14:09 WBC (3.98-10.04) K/mm3 RBC (3.98-5.22) M/mm3 Hgb (11.2-15.7) gm/dl Hct (34.1-44.9) % MCV (79.4-94.8) fl MCH (25.6-32.2) pg MCHC (32.2-35.5) g/dl RDW Std Deviation (36.4-46.3) fL Plt Count (182-369) K/mm3 MPV (9.4-12.3) fl Neut % (Auto) (34.0-71.1) % Lymph % (Auto) (19.3-51.7) % [place] % (Auto) (4.7-12.5) % Eos % (Auto) (0.7-5.8) Baso % (Auto) (0.1-1.2) % Neut # (Auto) (1.56-6.13) K/mm3 Lymph # (Auto) (1.18-3.74) K/mm3 [place] # (Auto) (0.24-0.36) K/mm3 Eos # (Auto) (0.04-0.36) K/mm3 Baso # (Auto) (0.01-0.08) K/mm3 PT (9.7-12.0) SECONDS INR APTT (21.7-31.4) SECONDS Puncture Site ABG pH (7.35-7.45) ABG pCO2 (35.0-45.0) mmHg ABG pO2 (80.0-100.0) mmHg ABG HCO3 (22.0-26.0) meq/L ABG O2 Saturation (96.0-97.0) % ABG Base Excess (-2-2.0) Wally Test O2 Delivery Device Oxygen Flow Rate Sodium (136-145) mEq/L Potassium (3.5-5.1) mEq/L Chloride (98-107) mEq/L Carbon Dioxide (21-32) mEq/L Anion Gap (5-15) BUN (7-18) mg/dL Creatinine (0.55-1.02) mg/dL Est Cr Clr Drug Dosing mL/min Estimated GFR (MDRD) (>60) mL/min BUN/Creatinine Ratio (14-18) Glucose (70-99) mg/dL Lactic Acid (0.4-2.0) mmol/L Calcium (8.5-10.1) mg/dL Magnesium (1.8-2.4) mg/dL Total Bilirubin (0.2-1.0) mg/dL AST (15-37) U/L ALT (14-59) U/L Alkaline Phosphatase (46-116) U/L CK-MB (CK-2) (0-3.6) ng/ml Troponin I (0.00-0.056) ng/mL C-Reactive Protein (<1.0) mg/dL NT-Pro-B Natriuret Pep 5453 H (0-450) pg/mL Total Protein (6.4-8.2) g/dl Albumin (3.4-5.0) g/dl Globulin gm/dL Albumin/Globulin Ratio (1-2) TSH 3rd Generation 5.352 H (0.358-3.74) uIU/mL Urine Color (Yellow) Urine Appearance (Clear) Urine pH (5.0-8.0) Ur Specific [place] (1.005-1.030) Urine Protein (Negative) Urine Glucose (UA) (Negative) Urine Ketones (Negative) Urine Occult Blood (Negative) Urine Nitrite (Negative) Urine Bilirubin (Negative) Urine Urobilinogen (0.2-1.0) Ur Leukocyte Esterase (Negative) U Hyaline Cast (Auto) (0-5) /lpf Urine RBC (0-5) /hpf Urine WBC (0-5) /hpf Ur Epithelial Cells (0-5) /hpf Urine Bacteria (FEW) /hpf Urine Mucus (FEW) /hpf SARS-CoV-2 RNA (CLAUDE) Negative (NEGATIVE) 09/29/20 09/29/20 09/29/20 Range/Units 14:22 15:18 15:20 WBC (3.98-10.04) K/mm3 RBC (3.98-5.22) M/mm3 Hgb (11.2-15.7) gm/dl Hct (34.1-44.9) % MCV (79.4-94.8) fl MCH (25.6-32.2) pg MCHC (32.2-35.5) g/dl RDW Std Deviation (36.4-46.3) fL Plt Count (182-369) K/mm3 MPV (9.4-12.3) fl Neut % (Auto) (34.0-71.1) % Lymph % (Auto) (19.3-51.7) % [place] % (Auto) (4.7-12.5) % Eos % (Auto) (0.7-5.8) Baso % (Auto) (0.1-1.2) % Neut # (Auto) (1.56-6.13) K/mm3 Lymph # (Auto) (1.18-3.74) K/mm3 [place] # (Auto) (0.24-0.36) K/mm3 Eos # (Auto) (0.04-0.36) K/mm3 Baso # (Auto) (0.01-0.08) K/mm3 PT (9.7-12.0) SECONDS INR APTT (21.7-31.4) SECONDS Puncture Site Lt radial ABG pH 7.42 (7.35-7.45) ABG pCO2 29.1 L (35.0-45.0) mmHg ABG pO2 50.0 L (80.0-100.0) mmHg ABG HCO3 18.6 L (22.0-26.0) meq/L ABG O2 Saturation 50.0 L (96.0-97.0) % ABG Base Excess -4.3 L (-2-2.0) Wally Test Positive O2 Delivery Device Nasal cannula Oxygen Flow Rate 6.0 Sodium (136-145) mEq/L Potassium (3.5-5.1) mEq/L Chloride (98-107) mEq/L Carbon Dioxide (21-32) mEq/L Anion Gap (5-15) BUN (7-18) mg/dL Creatinine (0.55-1.02) mg/dL Est Cr Clr Drug Dosing mL/min Estimated GFR (MDRD) (>60) mL/min BUN/Creatinine Ratio (14-18) Glucose (70-99) mg/dL Lactic Acid 1.1 (0.4-2.0) mmol/L Calcium (8.5-10.1) mg/dL Magnesium (1.8-2.4) mg/dL Total Bilirubin (0.2-1.0) mg/dL AST (15-37) U/L ALT (14-59) U/L Alkaline Phosphatase (46-116) U/L CK-MB (CK-2) (0-3.6) ng/ml Troponin I (0.00-0.056) ng/mL C-Reactive Protein (<1.0) mg/dL NT-Pro-B Natriuret Pep (0-450) pg/mL Total Protein (6.4-8.2) g/dl Albumin (3.4-5.0) g/dl Globulin gm/dL Albumin/Globulin Ratio (1-2) TSH 3rd Generation (0.358-3.74) uIU/mL Urine Color Dark yellow (Yellow) Urine Appearance Slt cloudy H (Clear) Urine pH 5.5 (5.0-8.0) Ur Specific [place] > or = 1.030 (1.005-1.030) Urine Protein 2+ H (Negative) Urine Glucose (UA) Trace H (Negative) Urine Ketones Negative (Negative) Urine Occult Blood 2+ H (Negative) Urine Nitrite Negative (Negative) Urine Bilirubin 1+ H (Negative) Urine Urobilinogen 0.2 (0.2-1.0) Ur Leukocyte Esterase Trace H (Negative) U Hyaline Cast (Auto) 20-30 H (0-5) /lpf Urine RBC 20-30 H (0-5) /hpf Urine WBC 20-30 H (0-5) /hpf Ur Epithelial Cells 0-5 (0-5) /hpf Urine Bacteria Many H (FEW) /hpf Urine Mucus Many H (FEW) /hpf SARS-CoV-2 RNA (CLAUDE) (NEGATIVE) 09/29/20 Range/Units 16:23 WBC (3.98-10.04) K/mm3 RBC (3.98-5.22) M/mm3 Hgb (11.2-15.7) gm/dl Hct (34.1-44.9) % MCV (79.4-94.8) fl MCH (25.6-32.2) pg MCHC (32.2-35.5) g/dl RDW Std Deviation (36.4-46.3) fL Plt Count (182-369) K/mm3 MPV (9.4-12.3) fl Neut % (Auto) (34.0-71.1) % Lymph % (Auto) (19.3-51.7) % [place] % (Auto) (4.7-12.5) % Eos % (Auto) (0.7-5.8) Baso % (Auto) (0.1-1.2) % Neut # (Auto) (1.56-6.13) K/mm3 Lymph # (Auto) (1.18-3.74) K/mm3 [place] # (Auto) (0.24-0.36) K/mm3 Eos # (Auto) (0.04-0.36) K/mm3 Baso # (Auto) (0.01-0.08) K/mm3 PT (9.7-12.0) SECONDS INR APTT 23.5 (21.7-31.4) SECONDS Puncture Site ABG pH (7.35-7.45) ABG pCO2 (35.0-45.0) mmHg ABG pO2 (80.0-100.0) mmHg ABG HCO3 (22.0-26.0) meq/L ABG O2 Saturation (96.0-97.0) % ABG Base Excess (-2-2.0) Wally Test O2 Delivery Device Oxygen Flow Rate Sodium (136-145) mEq/L Potassium (3.5-5.1) mEq/L Chloride (98-107) mEq/L Carbon Dioxide (21-32) mEq/L Anion Gap (5-15) BUN (7-18) mg/dL Creatinine (0.55-1.02) mg/dL Est Cr Clr Drug Dosing mL/min Estimated GFR (MDRD) (>60) mL/min BUN/Creatinine Ratio (14-18) Glucose (70-99) mg/dL Lactic Acid (0.4-2.0) mmol/L Calcium (8.5-10.1) mg/dL Magnesium (1.8-2.4) mg/dL Total Bilirubin (0.2-1.0) mg/dL AST (15-37) U/L ALT (14-59) U/L Alkaline Phosphatase (46-116) U/L CK-MB (CK-2) (0-3.6) ng/ml Troponin I (0.00-0.056) ng/mL C-Reactive Protein (<1.0) mg/dL NT-Pro-B Natriuret Pep (0-450) pg/mL Total Protein (6.4-8.2) g/dl Albumin (3.4-5.0) g/dl Globulin gm/dL Albumin/Globulin Ratio (1-2) TSH 3rd Generation (0.358-3.74) uIU/mL Urine Color (Yellow) Urine Appearance (Clear) Urine pH (5.0-8.0) Ur Specific [place] (1.005-1.030) Urine Protein (Negative) Urine Glucose (UA) (Negative) Urine Ketones (Negative) Urine Occult Blood (Negative) Urine Nitrite (Negative) Urine Bilirubin (Negative) Urine Urobilinogen (0.2-1.0) Ur Leukocyte Esterase (Negative) U Hyaline Cast (Auto) (0-5) /lpf Urine RBC (0-5) /hpf Urine WBC (0-5) /hpf Ur Epithelial Cells (0-5) /hpf Urine Bacteria (FEW) /hpf Urine Mucus (FEW) /hpf SARS-CoV-2 RNA (CLAUDE) (NEGATIVE) Result Diagrams: 09/29/20 14:00 09/29/20 14:00 Sepsis Event Note - Focused Exam Vital Signs: Vital Signs Temp Pulse Resp BP Pulse Ox 09/29/20 15:45 88 20 115/82 88 L 09/29/20 15:42 84 24 H 92 L 09/29/20 15:35 90 30 H 131/115 H 96 09/29/20 15:30 93 30 H 110/79 84 L 09/29/20 15:00 88 24 H 101/74 90 L 09/29/20 14:45 118 H 20 100/71 91 L 09/29/20 14:12 123 H 27 H 111/99 H 94 L 09/29/20 13:56 97.3 F 154 H 18 121/102 H 90 L Problem List Initiated/Reviewed/Updated: Yes Orders Last 24hrs: Active Orders 24 hr Category Date Time Status Admission Status [Patient Status] [ADT] Routine ADT 09/29/20 16:24 Active BIPAP Adult [RT BiPAP/CPAP] [RC] ASDIRECTED Care 09/29/20 16:23 Active Cardiac Monitoring [RC] CONTINUOUS Care 09/29/20 16:21 Active EKG Documentation Completion [RC] STAT Care 09/29/20 14:06 Active Height and Weight [RC] 04 Care 09/29/20 16:21 Active Intake and Output [RC] QSHIFT Care 09/29/20 16:21 Active Oxygen Therapy [RC] ASDIRECTED Care 09/29/20 14:10 Active Oxygen Therapy [RC] PRN Care 09/29/20 16:21 Active Peripheral IV Care [RC] . DIRECTED Care 09/29/20 14:11 Active Pulse Oximetry [RC] CONTINUOUS Care 09/29/20 16:21 Active RT BiPAP/CPAP [RC] ASDIRECTED Care 09/29/20 15:49 Active Up With Assistance [RC] ASDIRECTED Care 09/29/20 16:21 Active VTE/DVT Education [RC] , Care 09/29/20 16:21 Active Vital Signs [RC] Q4H Care 09/29/20 16:21 Active PT Evaluation and Treatment [CONS] Routine Cons 09/29/20 16:21 Active Respiratory Care Assess and Treatment [CONS] Routine Cons 09/29/20 16:21 Active Heart Healthy Diet [DIET] Diet 09/29/20 Dinner Active Chest 1V Frontal [CR] Stat Exams 09/29/20 15:30 Taken Echo Comp wo Cont [US] Routine Exams 10/02/20 07:30 Ordered BASIC METABOLIC PANEL,BMP [CHEM] DAILY Lab 09/30/20 06:00 Ordered BASIC METABOLIC PANEL,BMP [CHEM] DAILY Lab 10/01/20 06:00 Ordered BASIC METABOLIC PANEL,BMP [CHEM] DAILY Lab 10/02/20 06:00 Ordered BASIC METABOLIC PANEL,BMP [CHEM] DAILY Lab 10/03/20 06:00 Ordered CBC WITH AUTO DIFF [HEME] DAILY Lab 09/30/20 06:00 Ordered CBC WITH AUTO DIFF [HEME] DAILY Lab 10/01/20 06:00 Ordered CBC WITH AUTO DIFF [HEME] DAILY Lab 10/02/20 06:00 Ordered CBC WITH AUTO DIFF [HEME] DAILY Lab 10/03/20 06:00 Ordered FREE T3 [REF] Routine Lab 09/30/20 06:00 Ordered MAGNESIUM [CHEM] DAILY Lab 09/30/20 06:00 Ordered MAGNESIUM [CHEM] DAILY Lab 10/01/20 06:00 Ordered MAGNESIUM [CHEM] DAILY Lab 10/02/20 06:00 Ordered MAGNESIUM [CHEM] DAILY Lab 10/03/20 06:00 Ordered T4 FREE [CHEM] Routine Lab 09/30/20 06:00 Ordered Acetaminophen [TylenoL] Med 09/29/20 16:21 Active 650 mg PO Q4H PRN Apixaban [Eliquis] Med 09/29/20 21:00 Active 2.5 mg PO BID Brimonidine Tartrate/Timolol [Combigan 0.2%-0.5% Eye Med 09/29/20 21:00 Active Drops] 1 drop OP BID Diltiazem [Cardizem] 100 mg Med 09/29/20 15:00 Active Sodium Chloride 0.9% [Normal Saline] 100 ml IV TITRATE Diltiazem [Cardizem] 100 mg Med 09/29/20 16:30 Active Sodium Chloride 0.9% [Normal Saline] 100 ml IV TITRATE Furosemide [Lasix] Med 09/30/20 09:00 Active 20 mg IVPUSH BID Levothyroxine [Synthroid] Med 09/30/20 06:00 Active 50 mcg PO ACBREAKFAST Metoprolol Tartrate [Lopressor] Med 09/29/20 16:27 Active 5 mg IVPUSH Q6H PRN Ondansetron [Zofran] Med 09/29/20 16:21 Active 4 mg IV Q4H PRN Pantoprazole Sodium Med 09/30/20 09:00 Active 40 mg PO DAILY Sodium Chloride 0.9% [Saline Flush] Med 09/29/20 14:11 Active 10 ml FLUSH ASDIRECTED PRN Peripheral IV Insertion Adult [OM.PC] Stat Oth 09/29/20 14:10 Ordered Resuscitation Status Routine Resus Stat 09/29/20 16:21 Ordered Medication Orders Acetaminophen (Acetaminophen 325 Mg Tab) 650 mg PO Q4H PRN PRN Reason: Pain (Mild 1-3)/fever Apixaban (Apixaban 2.5 Mg Tab) 2.5 mg PO BID LINDA Furosemide (Furosemide 20 Mg/2 Ml Vial) 20 mg IVPUSH BID LINDA Diltiazem HCl 100 mg/ Sodium (Chloride) 100 mls @ 10 mls/hr IV TITRATE LINDA; Protocol Last Admin: 09/29/20 15:00 Dose: 10 mg/hr, 10 mls/hr Documented by: ETHAN Diltiazem HCl 100 mg/ Sodium (Chloride) 100 mls @ 5 mls/hr IV TITRATE LIDNA; Protocol Levothyroxine Sodium (Levothyroxine 50 Mcg Tab) 50 mcg PO ACBREAKFAST LINDA Metoprolol Tartrate (Metoprolol Tartrate 5 Mg/5 Ml Sdv) 5 mg IVPUSH Q6H PRN PRN Reason: Tachycardia Non-Formulary Medication (Brimonidine Tartrate/Timolol [Combigan 0.2%-0.5% Eye Drops]) 1 drop OP BID LINDA Non-Formulary Medication (Pantoprazole Sodium) 40 mg PO DAILY LINDA Ondansetron HCl (Ondansetron 4 Mg/2 Ml Sdv) 4 mg IV Q4H PRN PRN Reason: Nausea/Vomiting Sodium Chloride (Sodium Chloride 0.9% 10 Ml Syringe) 10 ml FLUSH ASDIRECTED PRN PRN Reason: Keep Vein Open Last Admin: 09/29/20 14:14 Dose: 10 ml Documented by: ETHAN Assessment/Plan Comment:: This is a 89F presenting for evaluation of dizziness, dry cough, SOB and orthopnea. She presented to ED today and was noted to be in Afib w/RVR. she was hypoxic and placed on BIPAP. CXR concerning for cardiomegaly. Notable labs included normal lactate. BNP elevated. Troponin WNL. She was given IV diltiazem and 40 mg IV lasix and admitted for further evaluation. She states she feels SOB has improved with BIPAP. 1. Acute hypoxic respiratory failure secondary to CHF exacerbation; baseline EF unknown 2. New onset Atrial Fibrillation w/RVR 3. Hx of Hypothyroidism withe elevated TSH 4. Presumed UTI 5. Presumed chronic kidney disease no recent baseline labs 6. Hx of HTN 7. Hx of GERD 8. Hx of HLD Plan -admit to ICU -tele -RT consult -continue BIPAP -IV lasix -daily weight; monitor I&O -electrolyte replacement as needed -check FT4 and FT3 -continue PPI -Echo -start eliquis -prn IV metoprolol for HR>120 -ditiazem infusion for goal HR<110 -start ceftriaxone -urine culture add on Code status-full code DVT ppx-eliquis
[2020-09-29] MEDS: cefTRIAXone 1 GM in Sodium Chloride 0.9% 100 ML IV SCH (18:05)
[2020-09-29] MEDS: Apixaban 2.5 MG Tab PO SCH (20:32)
[2020-09-30] MEDS: Levothyroxine 50 MCG Tab PO SCH (06:18)
[2020-09-30] MEDS: Metoprolol Tartrate 5 MG/5 ML SDV IVPUSH PRN ×2 (06:48→13:43)
--- NOTE | 2020-09-30 08:10 | CR ---
Chest: Frontal view of the chest was obtained utilizing portable technique. Comparison: Prior chest x-ray performed on the same day (2:17 PM). Findings on previous chest x-ray remain stable on current exam. Nothing acute is seen on current exam when compared to prior chest x-ray. Impression: 1. Stable chest x-ray. Diagnostic code #3
[2020-09-30] MEDS: Apixaban 2.5 MG Tab PO SCH ×2 (08:20→20:02)
[2020-09-30] MEDS: Furosemide 20 MG/2 ML VIAL IVPUSH SCH ×2 (08:21→20:03)
[2020-09-30] MEDS: Potassium Chloride 20 MEQ Tab.ER PO SCH ×2 (08:21→20:02)
[2020-09-30] MEDS ORDERED: Metoprolol Succinate 25 MG Tab.ER PO SCH (09:00)
--- NOTE | 2020-09-30 09:28 | PCM.PN ---
- General Info Date of Service: 09/30/20 Admission Dx/Problem (Free Text): Admission Diagnosis/Problem Admission Diagnosis/Problem Atrial fibrillation with rapid ventricular response Subjective Update: patient denies chest pain denies sob back in RVR this morning denies dizzines - Review of Systems General: Reports: Weakness HEENT: Reports: No Symptoms Pulmonary: Reports: No Symptoms Gastrointestinal: Reports: No Symptoms Musculoskeletal: Reports: No Symptoms Skin: Reports: No Symptoms Neurological: Reports: No Symptoms - Patient Data Vitals - Most Recent: Last Vital Signs Temp 97.5 F 09/30/20 08:00 Pulse 106 H 09/30/20 08:20 Resp 20 09/30/20 08:00 BP 112/79 09/30/20 08:20 Pulse Ox 94 L 09/30/20 09:05 Weight - Most Recent: 115 lb 4.8 oz I&O - Last 24 Hours: Intake & Output 09/29/20 09/30/20 09/30/20 22:59 06:59 14:59 Intake Total 28 400 Output Total 1500 200 Balance -1472 200 Lab Results Last 24 Hours: Laboratory Results - last 24 hr 09/29/20 09/29/20 09/29/20 Range/Units 14:00 14:00 14:00 WBC 9.04 (3.98-10.04) K/mm3 RBC 4.36 (3.98-5.22) M/mm3 Hgb 13.4 (11.2-15.7) gm/dl Hct 41.5 (34.1-44.9) % MCV 95.2 H (79.4-94.8) fl MCH 30.7 (25.6-32.2) pg MCHC 32.3 (32.2-35.5) g/dl RDW Std Deviation 49.1 H (36.4-46.3) fL Plt Count 275 (182-369) K/mm3 MPV 11.2 (9.4-12.3) fl Neut % (Auto) 75.9 H (34.0-71.1) % Lymph % (Auto) 12.9 L (19.3-51.7) % Rock % (Auto) 9.3 (4.7-12.5) % Eos % (Auto) 1.5 (0.7-5.8) Baso % (Auto) 0.2 (0.1-1.2) % Neut # (Auto) 6.85 H (1.56-6.13) K/mm3 Lymph # (Auto) 1.17 L (1.18-3.74) K/mm3 Rock # (Auto) 0.84 H (0.24-0.36) K/mm3 Eos # (Auto) 0.14 (0.04-0.36) K/mm3 Baso # (Auto) 0.02 (0.01-0.08) K/mm3 PT 10.9 (9.7-12.0) SECONDS INR 1.02 APTT (21.7-31.4) SECONDS Puncture Site ABG pH (7.35-7.45) ABG pCO2 (35.0-45.0) mmHg ABG pO2 (80.0-100.0) mmHg ABG HCO3 (22.0-26.0) meq/L ABG O2 Saturation (96.0-97.0) % ABG Base Excess (-2-2.0) Wally Test O2 Delivery Device Oxygen Flow Rate Sodium 138 (136-145) mEq/L Potassium 5.0 (3.5-5.1) mEq/L Chloride 105 (98-107) mEq/L Carbon Dioxide 24 (21-32) mEq/L Anion Gap 14.0 (5-15) BUN 27 H (7-18) mg/dL Creatinine 1.4 H (0.55-1.02) mg/dL Est Cr Clr Drug Dosing 19.95 mL/min Estimated GFR (MDRD) 35 (>60) mL/min BUN/Creatinine Ratio 19.3 H (14-18) Glucose 132 H (70-99) mg/dL Lactic Acid (0.4-2.0) mmol/L Calcium 9.1 (8.5-10.1) mg/dL Magnesium 2.3 (1.8-2.4) mg/dL Total Bilirubin 1.5 H (0.2-1.0) mg/dL AST 30 (15-37) U/L ALT 44 (14-59) U/L Alkaline Phosphatase 58 (46-116) U/L CK-MB (CK-2) 3.0 (0-3.6) ng/ml Troponin I < 0.017 (0.00-0.056) ng/mL C-Reactive Protein <0.2 (<1.0) mg/dL NT-Pro-B Natriuret Pep (0-450) pg/mL Total Protein 7.2 (6.4-8.2) g/dl Albumin 3.8 (3.4-5.0) g/dl Globulin 3.4 gm/dL Albumin/Globulin Ratio 1.1 (1-2) Free T4 (0.76-1.46) ng/dL TSH 3rd Generation (0.358-3.74) uIU/mL Urine Color (Yellow) Urine Appearance (Clear) Urine pH (5.0-8.0) Ur Specific [place] (1.005-1.030) Urine Protein (Negative) Urine Glucose (UA) (Negative) Urine Ketones (Negative) Urine Occult Blood (Negative) Urine Nitrite (Negative) Urine Bilirubin (Negative) Urine Urobilinogen (0.2-1.0) Ur Leukocyte Esterase (Negative) U Hyaline Cast (Auto) (0-5) /lpf Urine RBC (0-5) /hpf Urine WBC (0-5) /hpf Ur Epithelial Cells (0-5) /hpf Urine Bacteria (FEW) /hpf Urine Mucus (FEW) /hpf SARS-CoV-2 RNA (CLAUDE) (NEGATIVE) 09/29/20 09/29/20 09/29/20 Range/Units 14:00 14:00 14:09 WBC (3.98-10.04) K/mm3 RBC (3.98-5.22) M/mm3 Hgb (11.2-15.7) gm/dl Hct (34.1-44.9) % MCV (79.4-94.8) fl MCH (25.6-32.2) pg MCHC (32.2-35.5) g/dl RDW Std Deviation (36.4-46.3) fL Plt Count (182-369) K/mm3 MPV (9.4-12.3) fl Neut % (Auto) (34.0-71.1) % Lymph % (Auto) (19.3-51.7) % Rock % (Auto) (4.7-12.5) % Eos % (Auto) (0.7-5.8) Baso % (Auto) (0.1-1.2) % Neut # (Auto) (1.56-6.13) K/mm3 Lymph # (Auto) (1.18-3.74) K/mm3 Rock # (Auto) (0.24-0.36) K/mm3 Eos # (Auto) (0.04-0.36) K/mm3 Baso # (Auto) (0.01-0.08) K/mm3 PT (9.7-12.0) SECONDS INR APTT (21.7-31.4) SECONDS Puncture Site ABG pH (7.35-7.45) ABG pCO2 (35.0-45.0) mmHg ABG pO2 (80.0-100.0) mmHg ABG HCO3 (22.0-26.0) meq/L ABG O2 Saturation (96.0-97.0) % ABG Base Excess (-2-2.0) Wally Test O2 Delivery Device Oxygen Flow Rate Sodium (136-145) mEq/L Potassium (3.5-5.1) mEq/L Chloride (98-107) mEq/L Carbon Dioxide (21-32) mEq/L Anion Gap (5-15) BUN (7-18) mg/dL Creatinine (0.55-1.02) mg/dL Est Cr Clr Drug Dosing mL/min Estimated GFR (MDRD) (>60) mL/min BUN/Creatinine Ratio (14-18) Glucose (70-99) mg/dL Lactic Acid (0.4-2.0) mmol/L Calcium (8.5-10.1) mg/dL Magnesium (1.8-2.4) mg/dL Total Bilirubin (0.2-1.0) mg/dL AST (15-37) U/L ALT (14-59) U/L Alkaline Phosphatase (46-116) U/L CK-MB (CK-2) (0-3.6) ng/ml Troponin I (0.00-0.056) ng/mL C-Reactive Protein (<1.0) mg/dL NT-Pro-B Natriuret Pep 5453 H (0-450) pg/mL Total Protein (6.4-8.2) g/dl Albumin (3.4-5.0) g/dl Globulin gm/dL Albumin/Globulin Ratio (1-2) Free T4 (0.76-1.46) ng/dL TSH 3rd Generation 5.352 H (0.358-3.74) uIU/mL Urine Color (Yellow) Urine Appearance (Clear) Urine pH (5.0-8.0) Ur Specific [place] (1.005-1.030) Urine Protein (Negative) Urine Glucose (UA) (Negative) Urine Ketones (Negative) Urine Occult Blood (Negative) Urine Nitrite (Negative) Urine Bilirubin (Negative) Urine Urobilinogen (0.2-1.0) Ur Leukocyte Esterase (Negative) U Hyaline Cast (Auto) (0-5) /lpf Urine RBC (0-5) /hpf Urine WBC (0-5) /hpf Ur Epithelial Cells (0-5) /hpf Urine Bacteria (FEW) /hpf Urine Mucus (FEW) /hpf SARS-CoV-2 RNA (CLAUDE) Negative (NEGATIVE) 09/29/20 09/29/20 09/29/20 Range/Units 14:22 15:18 15:20 WBC (3.98-10.04) K/mm3 RBC (3.98-5.22) M/mm3 Hgb (11.2-15.7) gm/dl Hct (34.1-44.9) % MCV (79.4-94.8) fl MCH (25.6-32.2) pg MCHC (32.2-35.5) g/dl RDW Std Deviation (36.4-46.3) fL Plt Count (182-369) K/mm3 MPV (9.4-12.3) fl Neut % (Auto) (34.0-71.1) % Lymph % (Auto) (19.3-51.7) % Rock % (Auto) (4.7-12.5) % Eos % (Auto) (0.7-5.8) Baso % (Auto) (0.1-1.2) % Neut # (Auto) (1.56-6.13) K/mm3 Lymph # (Auto) (1.18-3.74) K/mm3 [place] # (Auto) (0.24-0.36) K/mm3 Eos # (Auto) (0.04-0.36) K/mm3 Baso # (Auto) (0.01-0.08) K/mm3 PT (9.7-12.0) SECONDS INR APTT (21.7-31.4) SECONDS Puncture Site Lt radial ABG pH 7.42 (7.35-7.45) ABG pCO2 29.1 L (35.0-45.0) mmHg ABG pO2 50.0 L (80.0-100.0) mmHg ABG HCO3 18.6 L (22.0-26.0) meq/L ABG O2 Saturation 50.0 L (96.0-97.0) % ABG Base Excess -4.3 L (-2-2.0) Wally Test Positive O2 Delivery Device Nasal cannula Oxygen Flow Rate 6.0 Sodium (136-145) mEq/L Potassium (3.5-5.1) mEq/L Chloride (98-107) mEq/L Carbon Dioxide (21-32) mEq/L Anion Gap (5-15) BUN (7-18) mg/dL Creatinine (0.55-1.02) mg/dL Est Cr Clr Drug Dosing mL/min Estimated GFR (MDRD) (>60) mL/min BUN/Creatinine Ratio (14-18) Glucose (70-99) mg/dL Lactic Acid 1.1 (0.4-2.0) mmol/L Calcium (8.5-10.1) mg/dL Magnesium (1.8-2.4) mg/dL Total Bilirubin (0.2-1.0) mg/dL AST (15-37) U/L ALT (14-59) U/L Alkaline Phosphatase (46-116) U/L CK-MB (CK-2) (0-3.6) ng/ml Troponin I (0.00-0.056) ng/mL C-Reactive Protein (<1.0) mg/dL NT-Pro-B Natriuret Pep (0-450) pg/mL Total Protein (6.4-8.2) g/dl Albumin (3.4-5.0) g/dl Globulin gm/dL Albumin/Globulin Ratio (1-2) Free T4 (0.76-1.46) ng/dL TSH 3rd Generation (0.358-3.74) uIU/mL Urine Color Dark yellow (Yellow) Urine Appearance Slt cloudy H (Clear) Urine pH 5.5 (5.0-8.0) Ur Specific [place] > or = 1.030 (1.005-1.030) Urine Protein 2+ H (Negative) Urine Glucose (UA) Trace H (Negative) Urine Ketones Negative (Negative) Urine Occult Blood 2+ H (Negative) Urine Nitrite Negative (Negative) Urine Bilirubin 1+ H (Negative) Urine Urobilinogen 0.2 (0.2-1.0) Ur Leukocyte Esterase Trace H (Negative) U Hyaline Cast (Auto) 20-30 H (0-5) /lpf Urine RBC 20-30 H (0-5) /hpf Urine WBC 20-30 H (0-5) /hpf Ur Epithelial Cells 0-5 (0-5) /hpf Urine Bacteria Many H (FEW) /hpf Urine Mucus Many H (FEW) /hpf SARS-CoV-2 RNA (CLAUDE) (NEGATIVE) 09/29/20 09/30/20 09/30/20 Range/Units 16:23 05:17 05:17 WBC 8.53 (3.98-10.04) K/mm3 RBC 3.96 L (3.98-5.22) M/mm3 Hgb 12.1 (11.2-15.7) gm/dl Hct 37.8 (34.1-44.9) % MCV 95.5 H (79.4-94.8) fl MCH 30.6 (25.6-32.2) pg MCHC 32.0 L (32.2-35.5) g/dl RDW Std Deviation 48.7 H (36.4-46.3) fL Plt Count 230 (182-369) K/mm3 MPV 11.5 (9.4-12.3) fl Neut % (Auto) 71.9 H (34.0-71.1) % Lymph % (Auto) 16.9 L (19.3-51.7) % Rock % (Auto) 8.3 (4.7-12.5) % Eos % (Auto) 2.5 (0.7-5.8) Baso % (Auto) 0.2 (0.1-1.2) % Neut # (Auto) 6.13 (1.56-6.13) K/mm3 Lymph # (Auto) 1.44 (1.18-3.74) K/mm3 [place] # (Auto) 0.71 H (0.24-0.36) K/mm3 Eos # (Auto) 0.21 (0.04-0.36) K/mm3 Baso # (Auto) 0.02 (0.01-0.08) K/mm3 PT (9.7-12.0) SECONDS INR APTT 23.5 (21.7-31.4) SECONDS Puncture Site ABG pH (7.35-7.45) ABG pCO2 (35.0-45.0) mmHg ABG pO2 (80.0-100.0) mmHg ABG HCO3 (22.0-26.0) meq/L ABG O2 Saturation (96.0-97.0) % ABG Base Excess (-2-2.0) Wally Test O2 Delivery Device Oxygen Flow Rate Sodium 143 (136-145) mEq/L Potassium 3.4 L D (3.5-5.1) mEq/L Chloride 107 (98-107) mEq/L Carbon Dioxide 27 (21-32) mEq/L Anion Gap 12.4 (5-15) BUN 24 H (7-18) mg/dL Creatinine 1.3 H (0.55-1.02) mg/dL Est Cr Clr Drug Dosing 21.49 mL/min Estimated GFR (MDRD) 39 (>60) mL/min BUN/Creatinine Ratio 18.5 H (14-18) Glucose 98 (70-99) mg/dL Lactic Acid (0.4-2.0) mmol/L Calcium 8.1 L (8.5-10.1) mg/dL Magnesium 2.1 (1.8-2.4) mg/dL Total Bilirubin (0.2-1.0) mg/dL AST (15-37) U/L ALT (14-59) U/L Alkaline Phosphatase (46-116) U/L CK-MB (CK-2) (0-3.6) ng/ml Troponin I (0.00-0.056) ng/mL C-Reactive Protein (<1.0) mg/dL NT-Pro-B Natriuret Pep (0-450) pg/mL Total Protein (6.4-8.2) g/dl Albumin (3.4-5.0) g/dl Globulin gm/dL Albumin/Globulin Ratio (1-2) Free T4 1.40 (0.76-1.46) ng/dL TSH 3rd Generation (0.358-3.74) uIU/mL Urine Color (Yellow) Urine Appearance (Clear) Urine pH (5.0-8.0) Ur Specific [place] (1.005-1.030) Urine Protein (Negative) Urine Glucose (UA) (Negative) Urine Ketones (Negative) Urine Occult Blood (Negative) Urine Nitrite (Negative) Urine Bilirubin (Negative) Urine Urobilinogen (0.2-1.0) Ur Leukocyte Esterase (Negative) U Hyaline Cast (Auto) (0-5) /lpf Urine RBC (0-5) /hpf Urine WBC (0-5) /hpf Ur Epithelial Cells (0-5) /hpf Urine Bacteria (FEW) /hpf Urine Mucus (FEW) /hpf SARS-CoV-2 RNA (CLAUDE) (NEGATIVE) Med Orders - Current: Current Medications Acetaminophen (Acetaminophen 325 Mg Tab) 650 mg PO Q4H PRN PRN Reason: Pain (Mild 1-3)/fever Apixaban (Apixaban 2.5 Mg Tab) 2.5 mg PO BID [facility] Last Admin: 09/30/20 08:20 Dose: 2.5 mg Documented by: Furosemide (Furosemide 20 Mg/2 Ml Vial) 20 mg IVPUSH BID [facility] Last Admin: 09/30/20 08:21 Dose: 20 mg Documented by: Diltiazem HCl 100 mg/ Sodium (Chloride) 100 mls @ 10 mls/hr IV TITRATE LINDA; Protocol Last Titration: 09/29/20 20:00 Dose: 0 mg/hr, 0 mls/hr Documented by: Diltiazem HCl 100 mg/ Sodium (Chloride) 100 mls @ 5 mls/hr IV TITRATE [facility]; Protocol Ceftriaxone Sodium 1 gm/ (Sodium Chloride) 100 mls @ 200 mls/hr IV Q24H [facility] Last Admin: 09/29/20 18:05 Dose: 200 mls/hr Documented by: Levothyroxine Sodium (Levothyroxine 50 Mcg Tab) 50 mcg PO ACBREAKFAST [facility] Last Admin: 09/30/20 06:18 Dose: 50 mcg Documented by: Metoprolol Succinate (Metoprolol Succinate 25 Mg Tab.Er) 25 mg PO DAILY [facility] Last Admin: 09/30/20 08:20 Dose: 25 mg Documented by: Metoprolol Tartrate (Metoprolol Tartrate 5 Mg/5 Ml Sdv) 5 mg IVPUSH Q6H PRN PRN Reason: Tachycardia Last Admin: 09/30/20 06:48 Dose: 5 mg Documented by: Non-Formulary Medication (Brimonidine Tartrate/Timolol [Combigan 0.2%-0.5% Eye Drops]) 1 drop OP BID [facility] Last Admin: 09/29/20 20:32 Dose: Not Given Documented by: Non-Formulary Medication (Pantoprazole Sodium) 40 mg PO DAILY [facility] Ondansetron HCl (Ondansetron 4 Mg/2 Ml Sdv) 4 mg IV Q4H PRN PRN Reason: Nausea/Vomiting Potassium Chloride (Potassium Chloride 20 Meq Tab.Er) 40 meq PO BID [facility] Last Admin: 09/30/20 08:21 Dose: 40 meq Documented by: Sodium Chloride (Sodium Chloride 0.9% 10 Ml Syringe) 10 ml FLUSH ASDIRECTED PRN PRN Reason: Keep Vein Open Last Admin: 09/29/20 14:14 Dose: 10 ml Documented by: Discontinued Medications Diltiazem HCl (Diltiazem 50 Mg/10 Ml Sdv) 10 mg IVPUSH ONETIME ONE Stop: 09/29/20 14:47 Last Admin: 09/29/20 14:58 Dose: 10 mg Documented by: Furosemide (Furosemide 40 Mg/4 Ml Vial) Confirm Administered Dose 40 mg .ROUTE .STK-MED ONE Stop: 09/29/20 15:23 Last Admin: 09/29/20 15:39 Dose: Not Given Documented by: Furosemide (Furosemide 40 Mg/4 Ml Vial) 40 mg IVPUSH NOW ONE Stop: 09/29/20 15:25 Last Admin: 09/29/20 15:26 Dose: 40 mg Documented by: - Exam General: Alert, Oriented HEENT: EOMI, Mucous Membr. Moist/[place] Neck: Supple Lungs: Clear to Auscultation, Normal Respiratory Effort Cardiovascular: Irregular Rhythm, Tachycardia GI/Abdominal Exam: Soft, Non-Tender, No Distention Back Exam: Normal Inspection Extremities: Normal Inspection Skin: Warm, Dry, Intact Neurological: No New Focal Deficit Psy/Mental Status: Alert - Patient Data Lab Results Last 24 hrs: Laboratory Results - last 24 hr 09/29/20 09/29/20 09/29/20 Range/Units 14:00 14:00 14:00 WBC 9.04 (3.98-10.04) K/mm3 RBC 4.36 (3.98-5.22) M/mm3 Hgb 13.4 (11.2-15.7) gm/dl Hct 41.5 (34.1-44.9) % MCV 95.2 H (79.4-94.8) fl MCH 30.7 (25.6-32.2) pg MCHC 32.3 (32.2-35.5) g/dl RDW Std Deviation 49.1 H (36.4-46.3) fL Plt Count 275 (182-369) K/mm3 MPV 11.2 (9.4-12.3) fl Neut % (Auto) 75.9 H (34.0-71.1) % Lymph % (Auto) 12.9 L (19.3-51.7) % Rock % (Auto) 9.3 (4.7-12.5) % Eos % (Auto) 1.5 (0.7-5.8) Baso % (Auto) 0.2 (0.1-1.2) % Neut # (Auto) 6.85 H (1.56-6.13) K/mm3 Lymph # (Auto) 1.17 L (1.18-3.74) K/mm3 [place] # (Auto) 0.84 H (0.24-0.36) K/mm3 Eos # (Auto) 0.14 (0.04-0.36) K/mm3 Baso # (Auto) 0.02 (0.01-0.08) K/mm3 PT 10.9 (9.7-12.0) SECONDS INR 1.02 APTT (21.7-31.4) SECONDS Puncture Site ABG pH (7.35-7.45) ABG pCO2 (35.0-45.0) mmHg ABG pO2 (80.0-100.0) mmHg ABG HCO3 (22.0-26.0) meq/L ABG O2 Saturation (96.0-97.0) % ABG Base Excess (-2-2.0) Wally Test O2 Delivery Device Oxygen Flow Rate Sodium 138 (136-145) mEq/L Potassium 5.0 (3.5-5.1) mEq/L Chloride 105 (98-107) mEq/L Carbon Dioxide 24 (21-32) mEq/L Anion Gap 14.0 (5-15) BUN 27 H (7-18) mg/dL Creatinine 1.4 H (0.55-1.02) mg/dL Est Cr Clr Drug Dosing 19.95 mL/min Estimated GFR (MDRD) 35 (>60) mL/min BUN/Creatinine Ratio 19.3 H (14-18) Glucose 132 H (70-99) mg/dL Lactic Acid (0.4-2.0) mmol/L Calcium 9.1 (8.5-10.1) mg/dL Magnesium 2.3 (1.8-2.4) mg/dL Total Bilirubin 1.5 H (0.2-1.0) mg/dL AST 30 (15-37) U/L ALT 44 (14-59) U/L Alkaline Phosphatase 58 (46-116) U/L CK-MB (CK-2) 3.0 (0-3.6) ng/ml Troponin I < 0.017 (0.00-0.056) ng/mL C-Reactive Protein <0.2 (<1.0) mg/dL NT-Pro-B Natriuret Pep (0-450) pg/mL Total Protein 7.2 (6.4-8.2) g/dl Albumin 3.8 (3.4-5.0) g/dl Globulin 3.4 gm/dL Albumin/Globulin Ratio 1.1 (1-2) Free T4 (0.76-1.46) ng/dL TSH 3rd Generation (0.358-3.74) uIU/mL Urine Color (Yellow) Urine Appearance (Clear) Urine pH (5.0-8.0) Ur Specific [place] (1.005-1.030) Urine Protein (Negative) Urine Glucose (UA) (Negative) Urine Ketones (Negative) Urine Occult Blood (Negative) Urine Nitrite (Negative) Urine Bilirubin (Negative) Urine Urobilinogen (0.2-1.0) Ur Leukocyte Esterase (Negative) U Hyaline Cast (Auto) (0-5) /lpf Urine RBC (0-5) /hpf Urine WBC (0-5) /hpf Ur Epithelial Cells (0-5) /hpf Urine Bacteria (FEW) /hpf Urine Mucus (FEW) /hpf SARS-CoV-2 RNA (CLAUDE) (NEGATIVE) 09/29/20 09/29/20 09/29/20 Range/Units 14:00 14:00 14:09 WBC (3.98-10.04) K/mm3 RBC (3.98-5.22) M/mm3 Hgb (11.2-15.7) gm/dl Hct (34.1-44.9) % MCV (79.4-94.8) fl MCH (25.6-32.2) pg MCHC (32.2-35.5) g/dl RDW Std Deviation (36.4-46.3) fL Plt Count (182-369) K/mm3 MPV (9.4-12.3) fl Neut % (Auto) (34.0-71.1) % Lymph % (Auto) (19.3-51.7) % Rock % (Auto) (4.7-12.5) % Eos % (Auto) (0.7-5.8) Baso % (Auto) (0.1-1.2) % Neut # (Auto) (1.56-6.13) K/mm3 Lymph # (Auto) (1.18-3.74) K/mm3 [place] # (Auto) (0.24-0.36) K/mm3 Eos # (Auto) (0.04-0.36) K/mm3 Baso # (Auto) (0.01-0.08) K/mm3 PT (9.7-12.0) SECONDS INR APTT (21.7-31.4) SECONDS Puncture Site ABG pH (7.35-7.45) ABG pCO2 (35.0-45.0) mmHg ABG pO2 (80.0-100.0) mmHg ABG HCO3 (22.0-26.0) meq/L ABG O2 Saturation (96.0-97.0) % ABG Base Excess (-2-2.0) Wally Test O2 Delivery Device Oxygen Flow Rate Sodium (136-145) mEq/L Potassium (3.5-5.1) mEq/L Chloride (98-107) mEq/L Carbon Dioxide (21-32) mEq/L Anion Gap (5-15) BUN (7-18) mg/dL Creatinine (0.55-1.02) mg/dL Est Cr Clr Drug Dosing mL/min Estimated GFR (MDRD) (>60) mL/min BUN/Creatinine Ratio (14-18) Glucose (70-99) mg/dL Lactic Acid (0.4-2.0) mmol/L Calcium (8.5-10.1) mg/dL Magnesium (1.8-2.4) mg/dL Total Bilirubin (0.2-1.0) mg/dL AST (15-37) U/L ALT (14-59) U/L Alkaline Phosphatase (46-116) U/L CK-MB (CK-2) (0-3.6) ng/ml Troponin I (0.00-0.056) ng/mL C-Reactive Protein (<1.0) mg/dL NT-Pro-B Natriuret Pep 5453 H (0-450) pg/mL Total Protein (6.4-8.2) g/dl Albumin (3.4-5.0) g/dl Globulin gm/dL Albumin/Globulin Ratio (1-2) Free T4 (0.76-1.46) ng/dL TSH 3rd Generation 5.352 H (0.358-3.74) uIU/mL Urine Color (Yellow) Urine Appearance (Clear) Urine pH (5.0-8.0) Ur Specific [place] (1.005-1.030) Urine Protein (Negative) Urine Glucose (UA) (Negative) Urine Ketones (Negative) Urine Occult Blood (Negative) Urine Nitrite (Negative) Urine Bilirubin (Negative) Urine Urobilinogen (0.2-1.0) Ur Leukocyte Esterase (Negative) U Hyaline Cast (Auto) (0-5) /lpf Urine RBC (0-5) /hpf Urine WBC (0-5) /hpf Ur Epithelial Cells (0-5) /hpf Urine Bacteria (FEW) /hpf Urine Mucus (FEW) /hpf SARS-CoV-2 RNA (CLAUDE) Negative (NEGATIVE) 09/29/20 09/29/20 09/29/20 Range/Units 14:22 15:18 15:20 WBC (3.98-10.04) K/mm3 RBC (3.98-5.22) M/mm3 Hgb (11.2-15.7) gm/dl Hct (34.1-44.9) % MCV (79.4-94.8) fl MCH (25.6-32.2) pg MCHC (32.2-35.5) g/dl RDW Std Deviation (36.4-46.3) fL Plt Count (182-369) K/mm3 MPV (9.4-12.3) fl Neut % (Auto) (34.0-71.1) % Lymph % (Auto) (19.3-51.7) % Rock % (Auto) (4.7-12.5) % Eos % (Auto) (0.7-5.8) Baso % (Auto) (0.1-1.2) % Neut # (Auto) (1.56-6.13) K/mm3 Lymph # (Auto) (1.18-3.74) K/mm3 Rock # (Auto) (0.24-0.36) K/mm3 Eos # (Auto) (0.04-0.36) K/mm3 Baso # (Auto) (0.01-0.08) K/mm3 PT (9.7-12.0) SECONDS INR APTT (21.7-31.4) SECONDS Puncture Site Lt radial ABG pH 7.42 (7.35-7.45) ABG pCO2 29.1 L (35.0-45.0) mmHg ABG pO2 50.0 L (80.0-100.0) mmHg ABG HCO3 18.6 L (22.0-26.0) meq/L ABG O2 Saturation 50.0 L (96.0-97.0) % ABG Base Excess -4.3 L (-2-2.0) Wally Test Positive O2 Delivery Device Nasal cannula Oxygen Flow Rate 6.0 Sodium (136-145) mEq/L Potassium (3.5-5.1) mEq/L Chloride (98-107) mEq/L Carbon Dioxide (21-32) mEq/L Anion Gap (5-15) BUN (7-18) mg/dL Creatinine (0.55-1.02) mg/dL Est Cr Clr Drug Dosing mL/min Estimated GFR (MDRD) (>60) mL/min BUN/Creatinine Ratio (14-18) Glucose (70-99) mg/dL Lactic Acid 1.1 (0.4-2.0) mmol/L Calcium (8.5-10.1) mg/dL Magnesium (1.8-2.4) mg/dL Total Bilirubin (0.2-1.0) mg/dL AST (15-37) U/L ALT (14-59) U/L Alkaline Phosphatase (46-116) U/L CK-MB (CK-2) (0-3.6) ng/ml Troponin I (0.00-0.056) ng/mL C-Reactive Protein (<1.0) mg/dL NT-Pro-B Natriuret Pep (0-450) pg/mL Total Protein (6.4-8.2) g/dl Albumin (3.4-5.0) g/dl Globulin gm/dL Albumin/Globulin Ratio (1-2) Free T4 (0.76-1.46) ng/dL TSH 3rd Generation (0.358-3.74) uIU/mL Urine Color Dark yellow (Yellow) Urine Appearance Slt cloudy H (Clear) Urine pH 5.5 (5.0-8.0) Ur Specific [place] > or = 1.030 (1.005-1.030) Urine Protein 2+ H (Negative) Urine Glucose (UA) Trace H (Negative) Urine Ketones Negative (Negative) Urine Occult Blood 2+ H (Negative) Urine Nitrite Negative (Negative) Urine Bilirubin 1+ H (Negative) Urine Urobilinogen 0.2 (0.2-1.0) Ur Leukocyte Esterase Trace H (Negative) U Hyaline Cast (Auto) 20-30 H (0-5) /lpf Urine RBC 20-30 H (0-5) /hpf Urine WBC 20-30 H (0-5) /hpf Ur Epithelial Cells 0-5 (0-5) /hpf Urine Bacteria Many H (FEW) /hpf Urine Mucus Many H (FEW) /hpf SARS-CoV-2 RNA (CLAUDE) (NEGATIVE) 09/29/20 09/30/20 09/30/20 Range/Units 16:23 05:17 05:17 WBC 8.53 (3.98-10.04) K/mm3 RBC 3.96 L (3.98-5.22) M/mm3 Hgb 12.1 (11.2-15.7) gm/dl Hct 37.8 (34.1-44.9) % MCV 95.5 H (79.4-94.8) fl MCH 30.6 (25.6-32.2) pg MCHC 32.0 L (32.2-35.5) g/dl RDW Std Deviation 48.7 H (36.4-46.3) fL Plt Count 230 (182-369) K/mm3 MPV 11.5 (9.4-12.3) fl Neut % (Auto) 71.9 H (34.0-71.1) % Lymph % (Auto) 16.9 L (19.3-51.7) % Rock % (Auto) 8.3 (4.7-12.5) % Eos % (Auto) 2.5 (0.7-5.8) Baso % (Auto) 0.2 (0.1-1.2) % Neut # (Auto) 6.13 (1.56-6.13) K/mm3 Lymph # (Auto) 1.44 (1.18-3.74) K/mm3 Rock # (Auto) 0.71 H (0.24-0.36) K/mm3 Eos # (Auto) 0.21 (0.04-0.36) K/mm3 Baso # (Auto) 0.02 (0.01-0.08) K/mm3 PT (9.7-12.0) SECONDS INR APTT 23.5 (21.7-31.4) SECONDS Puncture Site ABG pH (7.35-7.45) ABG pCO2 (35.0-45.0) mmHg ABG pO2 (80.0-100.0) mmHg ABG HCO3 (22.0-26.0) meq/L ABG O2 Saturation (96.0-97.0) % ABG Base Excess (-2-2.0) Wally Test O2 Delivery Device Oxygen Flow Rate Sodium 143 (136-145) mEq/L Potassium 3.4 L D (3.5-5.1) mEq/L Chloride 107 (98-107) mEq/L Carbon Dioxide 27 (21-32) mEq/L Anion Gap 12.4 (5-15) BUN 24 H (7-18) mg/dL Creatinine 1.3 H (0.55-1.02) mg/dL Est Cr Clr Drug Dosing 21.49 mL/min Estimated GFR (MDRD) 39 (>60) mL/min BUN/Creatinine Ratio 18.5 H (14-18) Glucose 98 (70-99) mg/dL Lactic Acid (0.4-2.0) mmol/L Calcium 8.1 L (8.5-10.1) mg/dL Magnesium 2.1 (1.8-2.4) mg/dL Total Bilirubin (0.2-1.0) mg/dL AST (15-37) U/L ALT (14-59) U/L Alkaline Phosphatase (46-116) U/L CK-MB (CK-2) (0-3.6) ng/ml Troponin I (0.00-0.056) ng/mL C-Reactive Protein (<1.0) mg/dL NT-Pro-B Natriuret Pep (0-450) pg/mL Total Protein (6.4-8.2) g/dl Albumin (3.4-5.0) g/dl Globulin gm/dL Albumin/Globulin Ratio (1-2) Free T4 1.40 (0.76-1.46) ng/dL TSH 3rd Generation (0.358-3.74) uIU/mL Urine Color (Yellow) Urine Appearance (Clear) Urine pH (5.0-8.0) Ur Specific [place] (1.005-1.030) Urine Protein (Negative) Urine Glucose (UA) (Negative) Urine Ketones (Negative) Urine Occult Blood (Negative) Urine Nitrite (Negative) Urine Bilirubin (Negative) Urine Urobilinogen (0.2-1.0) Ur Leukocyte Esterase (Negative) U Hyaline Cast (Auto) (0-5) /lpf Urine RBC (0-5) /hpf Urine WBC (0-5) /hpf Ur Epithelial Cells (0-5) /hpf Urine Bacteria (FEW) /hpf Urine Mucus (FEW) /hpf SARS-CoV-2 RNA (CLAUDE) (NEGATIVE) Result Diagrams: 09/30/20 05:17 09/30/20 05:17 Sepsis Event Note - Evaluation Sepsis Screening Result: Possible Sepsis Risk - Focused Exam Vital Signs: Vital Signs Temp Pulse Resp BP BP Pulse Ox Pulse Ox 09/30/20 09:05 94 L 09/30/20 08:20 106 H 112/79 08/14/21 08:00 97.5 F 20 112/79 91 L 09/30/20 06:48 120 H 111/82 09/30/20 04:00 97.5 F 20 103/83 93 L 09/30/20 00:00 97.7 F 20 100/62 94 L - Problem List Review Problem List Initiated/Reviewed/Updated: Yes - My Orders Last 24 Hours: My Active Orders 09/29/20 15:18 CULTURE URINE [MREF] Routine 09/29/20 16:21 Cardiac Monitoring [RC] CONTINUOUS Height and Weight [RC] 04 Intake and Output [RC] ,16 Pulse Oximetry [RC] CONTINUOUS Up With Assistance [RC] ASDIRECTED VTE/DVT Education [RC] PT Evaluation and Treatment [CONS] Routine Respiratory Care Assess and Treatment [CONS] Routine Acetaminophen [TylenoL] 650 mg PO Q4H PRN Ondansetron [Zofran] 4 mg IV Q4H PRN Resuscitation Status Routine 09/29/20 16:27 Metoprolol Tartrate [Lopressor] 5 mg IVPUSH Q6H PRN 09/29/20 16:30 Diltiazem [Cardizem] 100 mg Sodium Chloride 0.9% [Normal Saline] 100 ml IV TITRATE 09/29/20 Dinner Heart Healthy Diet [DIET] 09/29/20 18:00 cefTRIAXone [Rocephin] 1 gm Sodium Chloride 0.9% [Normal Saline] 100 ml IV Q24H 09/29/20 18:07 Add On Test [COMM] Stat 09/29/20 19:59 Communication Order [RC] 09/29/20 21:00 Apixaban [Eliquis] 2.5 mg PO BID Brimonidine Tartrate/Timolol [Combigan 0.2%-0.5% Eye Drops] 1 drop OP BID 09/30/20 05:17 FREE T3 [REF] Routine 09/30/20 06:00 Levothyroxine [Synthroid] 50 mcg PO ACBREAKFAST 09/30/20 09:00 Furosemide [Lasix] 20 mg IVPUSH BID Metoprolol Succinate [Toprol XL] 25 mg PO DAILY Pantoprazole Sodium 40 mg PO DAILY Potassium Chloride [Klor-Con M20] 40 meq PO BID 10/01/20 06:00 BASIC METABOLIC PANEL,BMP [CHEM] DAILY CBC WITH AUTO DIFF [HEME] DAILY MAGNESIUM [CHEM] DAILY 10/02/20 06:00 BASIC METABOLIC PANEL,BMP [CHEM] DAILY CBC WITH AUTO DIFF [HEME] DAILY MAGNESIUM [CHEM] DAILY 10/02/20 07:30 Echo Comp wo Cont [US] Routine 10/03/20 06:00 BASIC METABOLIC PANEL,BMP [CHEM] DAILY CBC WITH AUTO DIFF [HEME] DAILY MAGNESIUM [CHEM] DAILY - Plan Plan:: This is a 89F presenting for evaluation of dizziness, dry cough, SOB and orthopnea. She presented to ED today and was noted to be in Afib w/RVR. she was hypoxic and placed on BIPAP. CXR concerning for cardiomegaly. Notable labs included normal lactate. BNP elevated. Troponin WNL. She was given IV diltiazem and 40 mg IV lasix and admitted for further evaluation. She states she feels SOB has improved with BIPAP. 1. Acute hypoxic respiratory failure secondary to CHF exacerbation; baseline EF unknown 2. New onset Atrial Fibrillation w/RVR 3. Hx of Hypothyroidism withe elevated TSH 4. Presumed UTI 5. Presumed chronic kidney disease no recent baseline labs 6. Hx of HTN 7. Hx of GERD 8. Hx of HLD 9. Hypokalemia Plan -admit to ICU -tele -RT consult -continue BIPAP -IV lasix -daily weight; monitor I&O -electrolyte replacement as needed -checked FT4 and FT3 -continue PPI -Echo to be completed on Friday -started eliquis -prn IV metoprolol for HR>120 -ditiazem infusion for goal HR<110 -start ceftriaxone -urine culture add on -start PO metoprolol 09/30/20 Code status-full code DVT ppx-eliquis
[2020-09-30] MEDS: Non-Formulary Medication 1 Each (Pantoprazole Sodium 40 MG Tablet.Dr) PO SCH (10:49)
[2020-09-30] MEDS ORDERED: Metoprolol Tartrate 25 MG Tab PO SCH ×3 (14:15→21:00)
[2020-09-30] MEDS: cefTRIAXone 1 GM in Sodium Chloride 0.9% 100 ML IV SCH (17:47)
[2020-09-30] MEDS: Sodium Chloride 0.9% 10 ML Syringe FLUSH PRN (20:02)
[2020-10-01] MEDS: Levothyroxine 50 MCG Tab PO SCH (06:38)
[2020-10-01] MEDS: Potassium Chloride 20 MEQ Tab.ER PO SCH ×2 (08:10→20:23)
[2020-10-01] MEDS: Metoprolol Tartrate 50 MG Tab PO SCH ×2 (08:11→20:22)
[2020-10-01] MEDS: Apixaban 2.5 MG Tab PO SCH ×2 (08:11→20:22)
[2020-10-01] MEDS: Diltiazem IR 60 MG Tab PO SCH ×2 (08:12→20:23)
[2020-10-01] MEDS: Non-Formulary Medication 1 Each (Pantoprazole Sodium 40 MG Tablet.Dr) PO SCH (08:15)
[2020-10-01] MEDS ORDERED: Furosemide 40 MG Tab PO SCH (09:00)
[2020-10-01] MEDS: Timolol Maleate 0.5% Ophth Soln 5 ML Bottle EYEBOTH SCH ×2 (10:21→20:26)
[2020-10-01] MEDS: Brimonidine 0.2% Ophth Soln 5 ML Bottle EYEBOTH SCH ×2 (10:21→20:26)
[2020-10-01] MEDS: Pantoprazole 40 MG Tab.CR PO SCH (10:23)
--- NOTE | 2020-10-01 12:11 | PCM.PN ---
- General Info Date of Service: 10/01/20 Admission Dx/Problem (Free Text): Admission Diagnosis/Problem Admission Diagnosis/Problem Atrial fibrillation with rapid ventricular response Subjective Update: Weight down 121->113 denies SOB Denies CP HR in 120s this morning Functional Status: Reports: Pain Controlled - Review of Systems General: Reports: No Symptoms HEENT: Reports: No Symptoms Pulmonary: Reports: No Symptoms Gastrointestinal: Reports: No Symptoms Musculoskeletal: Reports: No Symptoms - Patient Data Vitals - Most Recent: Last Vital Signs Temp 97.3 F 10/01/20 12:00 Pulse 67 10/01/20 12:00 Resp 22 H 10/01/20 12:00 BP 86/65 L 10/01/20 12:00 Pulse Ox 100 10/01/20 12:10 Weight - Most Recent: 113 lb 12.8 oz I&O - Last 24 Hours: Intake & Output 09/30/20 10/01/20 10/01/20 22:59 06:59 14:59 Intake Total 600 400 Output Total 550 600 Balance 50 -200 Lab Results Last 24 Hours: Laboratory Results - last 24 hr 09/30/20 10/01/20 10/01/20 Range/Units 05:17 04:50 04:50 WBC 8.65 (3.98-10.04) K/mm3 RBC 4.22 (3.98-5.22) M/mm3 Hgb 13.3 (11.2-15.7) gm/dl Hct 40.4 (34.1-44.9) % MCV 95.7 H (79.4-94.8) fl MCH 31.5 (25.6-32.2) pg MCHC 32.9 (32.2-35.5) g/dl RDW Std Deviation 49.5 H (36.4-46.3) fL Plt Count 244 (182-369) K/mm3 MPV 11.0 (9.4-12.3) fl Neut % (Auto) 73.6 H (34.0-71.1) % Lymph % (Auto) 13.6 L (19.3-51.7) % Lucas % (Auto) 10.2 (4.7-12.5) % Eos % (Auto) 2.2 (0.7-5.8) Baso % (Auto) 0.3 (0.1-1.2) % Neut # (Auto) 6.36 H (1.56-6.13) K/mm3 Lymph # (Auto) 1.18 (1.18-3.74) K/mm3 Lucas # (Auto) 0.88 H (0.24-0.36) K/mm3 Eos # (Auto) 0.19 (0.04-0.36) K/mm3 Baso # (Auto) 0.03 (0.01-0.08) K/mm3 Sodium 144 (136-145) mEq/L Potassium 4.1 (3.5-5.1) mEq/L Chloride 106 (98-107) mEq/L Carbon Dioxide 26 (21-32) mEq/L Anion Gap 16.1 H (5-15) BUN 25 H (7-18) mg/dL Creatinine 1.2 H (0.55-1.02) mg/dL Est Cr Clr Drug Dosing 23.28 mL/min Estimated GFR (MDRD) 42 (>60) mL/min BUN/Creatinine Ratio 20.8 H (14-18) Glucose 114 H (70-99) mg/dL Calcium 8.2 L (8.5-10.1) mg/dL Magnesium 2.1 (1.8-2.4) mg/dL Free T3 pg/mL 2.36 L (2.50-3.90) pg/mL Nghia Results Last 24 Hours: Microbiology 09/29/20 15:18 Urine Culture - Final Urine Med Orders - Current: Current Medications Acetaminophen (Acetaminophen 325 Mg Tab) 650 mg PO Q4H PRN PRN Reason: Pain (Mild 1-3)/fever Apixaban (Apixaban 2.5 Mg Tab) 2.5 mg PO BID [facility] Last Admin: 10/01/20 08:11 Dose: 2.5 mg Documented by: Brimonidine Tartrate (Brimonidine 0.2% Ophth Soln 5 Ml Bottle) 0 ml EYEBOTH BID [facility] Last Admin: 10/01/20 10:21 Dose: 1 drop Documented by: Diltiazem HCl (Diltiazem Ir 60 Mg Tab) 60 mg PO Q12HR [facility] Last Admin: 10/01/20 08:12 Dose: 60 mg Documented by: Furosemide (Furosemide 40 Mg Tab) 40 mg PO DAILY [facility] Last Admin: 10/01/20 08:12 Dose: 40 mg Documented by: Diltiazem HCl 100 mg/ Sodium (Chloride) 100 mls @ 5 mls/hr IV TITRATE [facility]; Protocol Ceftriaxone Sodium 1 gm/ (Sodium Chloride) 100 mls @ 200 mls/hr IV Q24H [facility] Last Admin: 09/30/20 17:47 Dose: 200 mls/hr Documented by: Levothyroxine Sodium (Levothyroxine 50 Mcg Tab) 50 mcg PO ACBREAKFAST [facility] Last Admin: 10/01/20 06:38 Dose: 50 mcg Documented by: Metoprolol Tartrate (Metoprolol Tartrate 5 Mg/5 Ml Sdv) 5 mg IVPUSH Q6H PRN PRN Reason: Tachycardia Last Admin: 09/30/20 13:43 Dose: 5 mg Documented by: Metoprolol Tartrate (Metoprolol Tartrate 50 Mg Tab) 50 mg PO BID [facility] Last Admin: 10/01/20 08:11 Dose: 50 mg Documented by: Ondansetron HCl (Ondansetron 4 Mg/2 Ml Sdv) 4 mg IV Q4H PRN PRN Reason: Nausea/Vomiting Pantoprazole Sodium (Pantoprazole 40 Mg Tab.Cr) 40 mg PO DAILY [facility] Last Admin: 10/01/20 10:23 Dose: 40 mg Documented by: Potassium Chloride (Potassium Chloride 20 Meq Tab.Er) 40 meq PO BID [facility] Last Admin: 10/01/20 08:10 Dose: 40 meq Documented by: Sodium Chloride (Sodium Chloride 0.9% 10 Ml Syringe) 10 ml FLUSH ASDIRECTED PRN PRN Reason: Keep Vein Open Last Admin: 09/30/20 20:02 Dose: 10 ml Documented by: Timolol Maleate (Timolol Maleate 0.5% Ophth Soln 5 Ml Bottle) 0 ml EYEBOTH BID [facility] Last Admin: 10/01/20 10:21 Dose: 1 drop Documented by: Discontinued Medications Diltiazem HCl (Diltiazem 50 Mg/10 Ml Sdv) 10 mg IVPUSH ONETIME ONE Stop: 09/29/20 14:47 Last Admin: 09/29/20 14:58 Dose: 10 mg Documented by: Furosemide (Furosemide 40 Mg/4 Ml Vial) Confirm Administered Dose 40 mg .ROUTE .STK-MED ONE Stop: 09/29/20 15:23 Last Admin: 09/29/20 15:39 Dose: Not Given Documented by: Furosemide (Furosemide 40 Mg/4 Ml Vial) 40 mg IVPUSH NOW ONE Stop: 09/29/20 15:25 Last Admin: 09/29/20 15:26 Dose: 40 mg Documented by: Furosemide (Furosemide 20 Mg/2 Ml Vial) 20 mg IVPUSH BID [facility] Last Admin: 09/30/20 20:03 Dose: 20 mg Documented by: Diltiazem HCl 100 mg/ Sodium (Chloride) 100 mls @ 10 mls/hr IV TITRATE [facility]; Protocol Last Titration: 09/29/20 20:00 Dose: 0 mg/hr, 0 mls/hr Documented by: Metoprolol Succinate (Metoprolol Succinate 25 Mg Tab.Er) 25 mg PO DAILY [facility] Last Admin: 09/30/20 08:20 Dose: 25 mg Documented by: Metoprolol Tartrate (Metoprolol Tartrate 25 Mg Tab) 25 mg PO Q12H [facility] Metoprolol Tartrate (Metoprolol Tartrate 25 Mg Tab) 25 mg PO Q12H [facility] Last Admin: 09/30/20 14:22 Dose: 25 mg Documented by: Metoprolol Tartrate (Metoprolol Tartrate 25 Mg Tab) 25 mg PO BID [facility] Last Admin: 09/30/20 20:02 Dose: 25 mg Documented by: Non-Formulary Medication (Brimonidine Tartrate/Timolol [Combigan 0.2%-0.5% Eye Drops]) 1 drop OP BID [facility] Last Admin: 10/01/20 08:13 Dose: Not Given Documented by: Non-Formulary Medication (Pantoprazole Sodium) 40 mg PO DAILY [facility] Last Admin: 10/01/20 08:15 Dose: Not Given Documented by: - Exam General: Alert, Oriented Neck: Supple Cardiovascular: Irregular Rhythm, Tachycardia GI/Abdominal Exam: Soft, Non-Tender, No Distention Back Exam: Normal Inspection Extremities: Normal Inspection Skin: Warm, Dry, Intact Neurological: No New Focal Deficit Psy/Mental Status: Alert, Normal Affect, Normal Mood - Patient Data Lab Results Last 24 hrs: Laboratory Results - last 24 hr 09/30/20 10/01/20 10/01/20 Range/Units 05:17 04:50 04:50 WBC 8.65 (3.98-10.04) K/mm3 RBC 4.22 (3.98-5.22) M/mm3 Hgb 13.3 (11.2-15.7) gm/dl Hct 40.4 (34.1-44.9) % MCV 95.7 H (79.4-94.8) fl MCH 31.5 (25.6-32.2) pg MCHC 32.9 (32.2-35.5) g/dl RDW Std Deviation 49.5 H (36.4-46.3) fL Plt Count 244 (182-369) K/mm3 MPV 11.0 (9.4-12.3) fl Neut % (Auto) 73.6 H (34.0-71.1) % Lymph % (Auto) 13.6 L (19.3-51.7) % Lucas % (Auto) 10.2 (4.7-12.5) % Eos % (Auto) 2.2 (0.7-5.8) Baso % (Auto) 0.3 (0.1-1.2) % Neut # (Auto) 6.36 H (1.56-6.13) K/mm3 Lymph # (Auto) 1.18 (1.18-3.74) K/mm3 Lucas # (Auto) 0.88 H (0.24-0.36) K/mm3 Eos # (Auto) 0.19 (0.04-0.36) K/mm3 Baso # (Auto) 0.03 (0.01-0.08) K/mm3 Sodium 144 (136-145) mEq/L Potassium 4.1 (3.5-5.1) mEq/L Chloride 106 (98-107) mEq/L Carbon Dioxide 26 (21-32) mEq/L Anion Gap 16.1 H (5-15) BUN 25 H (7-18) mg/dL Creatinine 1.2 H (0.55-1.02) mg/dL Est Cr Clr Drug Dosing 23.28 mL/min Estimated GFR (MDRD) 42 (>60) mL/min BUN/Creatinine Ratio 20.8 H (14-18) Glucose 114 H (70-99) mg/dL Calcium 8.2 L (8.5-10.1) mg/dL Magnesium 2.1 (1.8-2.4) mg/dL Free T3 pg/mL 2.36 L (2.50-3.90) pg/mL Result Diagrams: 10/01/20 04:50 10/01/20 04:50 Nghia Results Last 24 hrs: Microbiology 09/29/20 15:18 Urine Culture - Final Urine Sepsis Event Note - Evaluation Sepsis Screening Result: Possible Sepsis Risk - Focused Exam Vital Signs: Vital Signs Temp Pulse Resp BP BP Pulse Ox Pulse Ox 10/01/20 12:10 100 10/01/20 12:00 97.3 F 67 22 H 86/65 L 100 10/01/20 09:03 93 102/72 10/01/20 08:11 107 H 146/133 H 10/01/20 08:00 96.9 F 119 H 22 H 143/108 H 92 L 10/01/20 04:00 97.2 F 22 H 94/60 94 L - Problem List Review Problem List Initiated/Reviewed/Updated: Yes - My Orders Last 24 Hours: My Active Orders 10/01/20 09:00 Brimonidine [Alphagan 0.2% Ophth Soln] 0 ml EYEBOTH BID Diltiazem IR [Cardizem] 60 mg PO Q12HR Furosemide [Lasix] 40 mg PO DAILY Metoprolol Tartrate [Lopressor] 50 mg PO BID Pantoprazole [ProTONIX] 40 mg PO DAILY timoloL maleate [Timoptic 0.5% Ophth Soln] 0 ml EYEBOTH BID 10/02/20 06:00 BASIC METABOLIC PANEL,BMP [CHEM] DAILY CBC WITH AUTO DIFF [HEME] DAILY MAGNESIUM [CHEM] DAILY 10/02/20 07:30 Echo Comp wo Cont [US] Routine 10/03/20 06:00 BASIC METABOLIC PANEL,BMP [CHEM] DAILY CBC WITH AUTO DIFF [HEME] DAILY MAGNESIUM [CHEM] DAILY - Plan Plan:: This is a 89F presenting for evaluation of dizziness, dry cough, SOB and orthopnea. She presented to ED today and was noted to be in Afib w/RVR. she was hypoxic and placed on BIPAP. CXR concerning for cardiomegaly. Notable labs included normal lactate. BNP elevated. Troponin WNL. She was given IV diltiazem and 40 mg IV lasix and admitted for further evaluation. She states she feels SOB has improved with BIPAP. 1. Acute hypoxic respiratory failure secondary to CHF exacerbation; baseline EF unknown 2. New onset Atrial Fibrillation w/RVR 3. Hx of Hypothyroidism withe elevated TSH 4. Presumed UTI; UTI ruled out final Cx negative 5. Presumed chronic kidney disease no recent baseline labs 6. Hx of HTN 7. Hx of GERD 8. Hx of HLD 9. Hypokalemia Plan -admit to ICU -tele -RT consult -continue BIPAP -IV lasix->transition to PO lasix 10/01 -daily weight; monitor I&O -electrolyte replacement as needed -checked FT4 and FT3; normal FT4; slightly reduced FT3 (on synthroid) -continue PPI -Echo to be completed on Friday -started eliquis -prn IV metoprolol for HR>120 -increase metoprolol to 50 mg BID (10/01) -start diltiazem IR (10/01); transition to XR if able to tolerate -discontinue ceftriaxone Code status-full code DVT ppx-eliquis
[2020-10-02] MEDS: Levothyroxine 50 MCG Tab PO SCH (05:57)
[2020-10-02] MEDS: Pantoprazole 40 MG Tab.CR PO SCH (09:06)
[2020-10-02] MEDS: Furosemide 40 MG Tab PO SCH ×2 (09:07→20:49)
[2020-10-02] MEDS: Metoprolol Tartrate 50 MG Tab PO SCH ×2 (09:07→20:51)
[2020-10-02] MEDS: Apixaban 2.5 MG Tab PO SCH ×2 (09:07→20:50)
[2020-10-02] MEDS: Diltiazem IR 60 MG Tab PO SCH ×2 (09:07→20:50)
[2020-10-02] MEDS: Timolol Maleate 0.5% Ophth Soln 5 ML Bottle EYEBOTH SCH ×2 (09:08→20:51)
[2020-10-02] MEDS: Brimonidine 0.2% Ophth Soln 5 ML Bottle EYEBOTH SCH ×2 (09:08→20:51)
--- NOTE | 2020-10-02 09:48 | PCM.PN ---
- General Info Date of Service: 10/02/20 Admission Dx/Problem (Free Text): Admission Diagnosis/Problem Admission Diagnosis/Problem Atrial fibrillation with rapid ventricular response Subjective Update: No acute events overnight. No new nursing concerns. Rates controlled on oral calcium channel paulette and beta-paulette. Still requiring 1 to 2 L of supplemental oxygen for pulmonary edema. The patient has no new complaints. Has some's of breath, but denies any chest pain, pleurisy, chest pressure. Tolerating a diet. Tolerating diuresis which seems to be frequent. Echocardiogram pending. - Patient Data Vitals - Most Recent: Last Vital Signs Temp 97.2 F 10/02/20 04:00 Pulse 84 10/02/20 09:07 Resp 22 H 10/02/20 04:00 BP 97/69 10/02/20 09:07 Pulse Ox 96 10/02/20 04:00 Weight - Most Recent: 113 lb 1.6 oz I&O - Last 24 Hours: Intake & Output 10/01/20 10/02/20 10/02/20 22:59 06:59 14:59 Intake Total 880 400 Output Total 200 300 Balance 680 100 Lab Results Last 24 Hours: Laboratory Results - last 24 hr 09/30/20 10/02/20 10/02/20 Range/Units 05:17 05:10 05:10 WBC 9.01 (3.98-10.04) K/mm3 RBC 4.28 (3.98-5.22) M/mm3 Hgb 13.3 (11.2-15.7) gm/dl Hct 41.1 (34.1-44.9) % MCV 96.0 H (79.4-94.8) fl MCH 31.1 (25.6-32.2) pg MCHC 32.4 (32.2-35.5) g/dl RDW Std Deviation 50.6 H (36.4-46.3) fL Plt Count 272 (182-369) K/mm3 MPV 11.6 (9.4-12.3) fl Neut % (Auto) 71.9 H (34.0-71.1) % Lymph % (Auto) 15.6 L (19.3-51.7) % [place] % (Auto) 9.8 (4.7-12.5) % Eos % (Auto) 2.2 (0.7-5.8) Baso % (Auto) 0.2 (0.1-1.2) % Neut # (Auto) 6.47 H (1.56-6.13) K/mm3 Lymph # (Auto) 1.41 (1.18-3.74) K/mm3 [place] # (Auto) 0.88 H (0.24-0.36) K/mm3 Eos # (Auto) 0.20 (0.04-0.36) K/mm3 Baso # (Auto) 0.02 (0.01-0.08) K/mm3 Sodium 142 (136-145) mEq/L Potassium 5.0 (3.5-5.1) mEq/L Chloride 107 (98-107) mEq/L Carbon Dioxide 26 (21-32) mEq/L Anion Gap 14.0 (5-15) BUN 27 H (7-18) mg/dL Creatinine 1.3 H (0.55-1.02) mg/dL Est Cr Clr Drug Dosing 21.49 mL/min Estimated GFR (MDRD) 39 (>60) mL/min BUN/Creatinine Ratio 20.8 H (14-18) Glucose 109 H (70-99) mg/dL Calcium 8.8 (8.5-10.1) mg/dL Magnesium 2.1 (1.8-2.4) mg/dL Free T3 pg/mL 2.36 L (2.50-3.90) pg/mL Nghia Results Last 24 Hours: Microbiology 09/29/20 15:18 Urine Culture - Final Urine Med Orders - Current: Current Medications Acetaminophen (Acetaminophen 325 Mg Tab) 650 mg PO Q4H PRN PRN Reason: Pain (Mild 1-3)/fever Apixaban (Apixaban 2.5 Mg Tab) 2.5 mg PO BID [facility] Last Admin: 10/02/20 09:07 Dose: 2.5 mg Documented by: Brimonidine Tartrate (Brimonidine 0.2% Ophth Soln 5 Ml Bottle) 0 ml EYEBOTH BID [facility] Last Admin: 10/02/20 09:08 Dose: 1 drop Documented by: Diltiazem HCl (Diltiazem Ir 60 Mg Tab) 60 mg PO Q12HR [facility] Last Admin: 10/02/20 09:07 Dose: 60 mg Documented by: Furosemide (Furosemide 40 Mg Tab) 40 mg PO BID [facility] Last Admin: 10/02/20 09:07 Dose: 40 mg Documented by: Diltiazem HCl 100 mg/ Sodium (Chloride) 100 mls @ 5 mls/hr IV TITRATE [facility]; Protocol Levothyroxine Sodium (Levothyroxine 50 Mcg Tab) 50 mcg PO ACBREAKFAST [facility] Last Admin: 10/02/20 05:57 Dose: 50 mcg Documented by: Metoprolol Tartrate (Metoprolol Tartrate 5 Mg/5 Ml Sdv) 5 mg IVPUSH Q6H PRN PRN Reason: Tachycardia Last Admin: 09/30/20 13:43 Dose: 5 mg Documented by: Metoprolol Tartrate (Metoprolol Tartrate 50 Mg Tab) 50 mg PO BID [facility] Last Admin: 10/02/20 09:07 Dose: 50 mg Documented by: Ondansetron HCl (Ondansetron 4 Mg/2 Ml Sdv) 4 mg IV Q4H PRN PRN Reason: Nausea/Vomiting Pantoprazole Sodium (Pantoprazole 40 Mg Tab.Cr) 40 mg PO DAILY [facility] Last Admin: 10/02/20 09:06 Dose: 40 mg Documented by: Sodium Chloride (Sodium Chloride 0.9% 10 Ml Syringe) 10 ml FLUSH ASDIRECTED PRN PRN Reason: Keep Vein Open Last Admin: 09/30/20 20:02 Dose: 10 ml Documented by: Timolol Maleate (Timolol Maleate 0.5% Ophth Soln 5 Ml Bottle) 0 ml EYEBOTH BID [facility] Last Admin: 10/02/20 09:08 Dose: 1 drop Documented by: Discontinued Medications Diltiazem HCl (Diltiazem 50 Mg/10 Ml Sdv) 10 mg IVPUSH ONETIME ONE Stop: 09/29/20 14:47 Last Admin: 09/29/20 14:58 Dose: 10 mg Documented by: Furosemide (Furosemide 40 Mg/4 Ml Vial) Confirm Administered Dose 40 mg .ROUTE .STK-MED ONE Stop: 09/29/20 15:23 Last Admin: 09/29/20 15:39 Dose: Not Given Documented by: Furosemide (Furosemide 40 Mg/4 Ml Vial) 40 mg IVPUSH NOW ONE Stop: 09/29/20 15:25 Last Admin: 09/29/20 15:26 Dose: 40 mg Documented by: Furosemide (Furosemide 20 Mg/2 Ml Vial) 20 mg IVPUSH BID [facility] Last Admin: 09/30/20 20:03 Dose: 20 mg Documented by: Furosemide (Furosemide 40 Mg Tab) 40 mg PO DAILY [facility] Last Admin: 10/01/20 08:12 Dose: 40 mg Documented by: Diltiazem HCl 100 mg/ Sodium (Chloride) 100 mls @ 10 mls/hr IV TITRATE [facility]; Protocol Last Titration: 09/29/20 20:00 Dose: 0 mg/hr, 0 mls/hr Documented by: Ceftriaxone Sodium 1 gm/ (Sodium Chloride) 100 mls @ 200 mls/hr IV Q24H [facility] Last Admin: 09/30/20 17:47 Dose: 200 mls/hr Documented by: Metoprolol Succinate (Metoprolol Succinate 25 Mg Tab.Er) 25 mg PO DAILY [facility] Last Admin: 09/30/20 08:20 Dose: 25 mg Documented by: Metoprolol Tartrate (Metoprolol Tartrate 25 Mg Tab) 25 mg PO Q12H [facility] Metoprolol Tartrate (Metoprolol Tartrate 25 Mg Tab) 25 mg PO Q12H [facility] Last Admin: 09/30/20 14:22 Dose: 25 mg Documented by: Metoprolol Tartrate (Metoprolol Tartrate 25 Mg Tab) 25 mg PO BID [facility] Last Admin: 09/30/20 20:02 Dose: 25 mg Documented by: Non-Formulary Medication (Brimonidine Tartrate/Timolol [Combigan 0.2%-0.5% Eye Drops]) 1 drop OP BID [facility] Last Admin: 10/01/20 08:13 Dose: Not Given Documented by: Non-Formulary Medication (Pantoprazole Sodium) 40 mg PO DAILY [facility] Last Admin: 10/01/20 08:15 Dose: Not Given Documented by: Potassium Chloride (Potassium Chloride 20 Meq Tab.Er) 40 meq PO BID [facility] Last Admin: 10/01/20 20:23 Dose: 40 meq Documented by: - Exam General: Alert, Cooperative, No Acute Distress Neck: Supple Lungs: Rales (Bilaterally at bases and are minimal) Cardiovascular: Irregular Rhythm (Susceptible rates of 70-115 depending on activity) GI/Abdominal Exam: Normal Bowel Sounds, Soft, Non-Tender Extremities: Normal Inspection, No Pedal Edema Skin: Warm, Dry Neurological: No New Focal Deficit - Patient Data Lab Results Last 24 hrs: Laboratory Results - last 24 hr 09/30/20 10/02/20 10/02/20 Range/Units 05:17 05:10 05:10 WBC 9.01 (3.98-10.04) K/mm3 RBC 4.28 (3.98-5.22) M/mm3 Hgb 13.3 (11.2-15.7) gm/dl Hct 41.1 (34.1-44.9) % MCV 96.0 H (79.4-94.8) fl MCH 31.1 (25.6-32.2) pg MCHC 32.4 (32.2-35.5) g/dl RDW Std Deviation 50.6 H (36.4-46.3) fL Plt Count 272 (182-369) K/mm3 MPV 11.6 (9.4-12.3) fl Neut % (Auto) 71.9 H (34.0-71.1) % Lymph % (Auto) 15.6 L (19.3-51.7) % [place] % (Auto) 9.8 (4.7-12.5) % Eos % (Auto) 2.2 (0.7-5.8) Baso % (Auto) 0.2 (0.1-1.2) % Neut # (Auto) 6.47 H (1.56-6.13) K/mm3 Lymph # (Auto) 1.41 (1.18-3.74) K/mm3 [place] # (Auto) 0.88 H (0.24-0.36) K/mm3 Eos # (Auto) 0.20 (0.04-0.36) K/mm3 Baso # (Auto) 0.02 (0.01-0.08) K/mm3 Sodium 142 (136-145) mEq/L Potassium 5.0 (3.5-5.1) mEq/L Chloride 107 (98-107) mEq/L Carbon Dioxide 26 (21-32) mEq/L Anion Gap 14.0 (5-15) BUN 27 H (7-18) mg/dL Creatinine 1.3 H (0.55-1.02) mg/dL Est Cr Clr Drug Dosing 21.49 mL/min Estimated GFR (MDRD) 39 (>60) mL/min BUN/Creatinine Ratio 20.8 H (14-18) Glucose 109 H (70-99) mg/dL Calcium 8.8 (8.5-10.1) mg/dL Magnesium 2.1 (1.8-2.4) mg/dL Free T3 pg/mL 2.36 L (2.50-3.90) pg/mL Result Diagrams: 10/02/20 05:10 10/02/20 05:10 Nghia Results Last 24 hrs: Microbiology 09/29/20 15:18 Urine Culture - Final Urine Sepsis Event Note - Evaluation Sepsis Screening Result: Possible Sepsis Risk - Focused Exam Vital Signs: Vital Signs Temp Pulse Resp BP BP Pulse Ox 10/02/20 09:07 84 97/69 10/02/20 04:00 97.2 F 22 H 104/61 96 10/01/20 23:45 97.1 F 22 H 104/61 94 L - Problem List Review Problem List Initiated/Reviewed/Updated: Yes - My Orders Last 24 Hours: My Active Orders 10/02/20 08:07 Patient Status [ADT] Routine - Plan Plan:: This is a 89F presenting for evaluation of dizziness, dry cough, SOB and orthopnea. She presented to ED today and was noted to be in Afib w/RVR. she was hypoxic and placed on BIPAP. CXR concerning for cardiomegaly. Notable labs included normal lactate. BNP elevated. Troponin WNL. She was given IV diltiazem and 40 mg IV lasix and admitted for further evaluation. She states she feels SOB has improved with BIPAP. 1. Acute hypoxic respiratory failure secondary to [place] edema in the setting of atrial fibrillation with rapid ventricular rate. 2. New onset Atrial Fibrillation w/RVR 3. Hx of Hypothyroidism withe elevated TSH 4. Presumed UTI; UTI ruled out final Cx negative 5. Presumed chronic kidney disease no recent baseline labs 6. Hx of HTN 7. Hx of GERD 8. Hx of HLD 9. Hypokalemia Plan -Continue telemetry monitoring. -RT consult -Twice daily diuresis to continue until weaned off of oxygen, or showing signs of contraction alkalosis. -daily weight; monitor I&O -electrolyte replacement as needed -checked FT4 and FT3; normal FT4; slightly reduced FT3 (on synthroid) -continue PPI -Echo done today. -started eliquis -prn IV metoprolol for HR>120 -increase metoprolol to 50 mg BID (10/01) -Wean oxygen as tolerated. Daily ambulation saturation trials. Is not requiring ICU level of care. Code status-full code DVT ppx-elishelbiis
[2020-10-03] MEDS: Levothyroxine 50 MCG Tab PO SCH (06:34)
[2020-10-03] MEDS: Timolol Maleate 0.5% Ophth Soln 5 ML Bottle EYEBOTH SCH (09:16)
[2020-10-03] MEDS: Brimonidine 0.2% Ophth Soln 5 ML Bottle EYEBOTH SCH (09:18)
[2020-10-03] MEDS: Metoprolol Tartrate 50 MG Tab PO SCH (09:18)
[2020-10-03] MEDS: Diltiazem IR 60 MG Tab PO SCH (09:18)
[2020-10-03] MEDS: Apixaban 2.5 MG Tab PO SCH (09:18)
[2020-10-03] MEDS: Pantoprazole 40 MG Tab.CR PO SCH (09:19)
[2020-10-03] MEDS: Furosemide 40 MG Tab PO SCH (09:19)
--- NOTE | 2020-10-03 09:29 | PCM.DCSUM1 ---
Discharge Summary - Hospital Course Free Text/Narrative:: This is a 89F that presented for evaluation of dizziness, dry cough, SOB and orthopnea. She was noted to be in Afib w/RVR. she was hypoxic and placed on BIPAP. CXR concerning for cardiomegaly. Notable labs included normal lactate. BNP elevated. Troponin WNL. She was given IV diltiazem and 40 mg IV lasix and admitted for further evaluation. She states she feels SOB has improved with BIPAP. 1. Acute hypoxic respiratory failure secondary to pulmonary edema in the setting of atrial fibrillation with rapid ventricular rate. 2. New onset Atrial Fibrillation w/RVR 3. Hx of Hypothyroidism withe elevated TSH 4. Presumed UTI; UTI ruled out final Cx negative 5. Presumed chronic kidney disease no recent baseline labs 6. Hx of HTN 7. Hx of GERD 8. Hx of HLD 9. Hypokalemia General summary: Patient was admitted to the telemetry unit for ongoing management and evaluation. The patient was initially controlled with IV diltiazem which was transitioned to 60 mg p.o. twice daily along with concomitant metoprolol dosing of 50 mg twice daily. Since the second day of admission her heart rates have been controlled between 74 and 110 at rest and with ambulation. The patient was placed on systemic anticoagulation at 2.5 mg of Eliquis twice daily considering advanced age and weight. Prescriptions for calcium channel paulette, Lopressor and systemic anticoagulation given at time of discharge. She will need follow-up with primary care physician as well as cardiology on an outpatient basis. Patient was in pulmonary edema and acute hypoxic respiratory failure likely secondary to complications of atrial fibrillation and due to newly diagnosed systolic congestive heart failure with moderate tricuspid and moderate mitral regurgitation. The patient's respiratory failure was initially managed with BiPAP and has successfully weaned off oxygen entirely. Ambulation saturation trial on the morning of discharge was notable for ambulation of up to 100 feet with O2 saturations between 94 and 98%. Patient was diuresed with Lasix. She is now requiring 40 mg of p.o. Lasix daily. Heart failure education was given. She will need to follow-up with her primary care physician regarding reevaluation of volume status, renal function and electrolytes. This should occur within the next 1 to 2 weeks with repeat lab studies. All of her other medical comorbidities were stable and nonactive conditions. She was kept on her home medications at regular dose otherwise. Code status-full code DVT ppx-eliquis HPI Initial Comments: Initial Comments - Free Text/Narative: This is a 89F presenting for evaluation of dizziness. For the last 3 weeks she endorses generalized weakness and fatigue. She has dry cough. She endorses SOB and orthopnea. Denies chest pain, palpitations, nausea, vomiting, fever. She presented to ED today and was noted to be in Afib w/RVR. she was hypoxic and placed on BIPAP. CXR concerning for cardiomegaly. Notable labs included normal lactate. BNP elevated. Troponin WNL. She was given IV diltiazem and 40 mg IV lasix and admitted for further evaluation. She states she feels SOB has improved with BIPAP. Denies recent fall, headache, dizziness has improved. - Related Data Allergies/Adverse Reactions: Allergies Allergy/AdvReac Type Severity Reaction Status Date / Time aspirin Allergy Mild Abdominal Verified 09/29/20 14:37 Pain Home Medications: Home Meds Alendronate [Fosamax] 70 mg PO WEEKLY 09/29/20 [History] Brimonidine Tartrate/Timolol [Combigan Eye Drops] 1 drop EYERT BID 09/29/20 [History] Levothyroxine [Synthroid] 50 mcg PO ACBREAKFAST 09/29/20 [History] Pantoprazole Sodium [Protonix] 40 mg PO DAILY 09/29/20 [History] Simvastatin 20 mg PO DAILY 09/29/20 [History] amLODIPine [Norvasc] 5 mg PO DAILY 09/29/20 [History] Past Medical History HEENT History: Reports: Cataract, Impaired Vision Cardiovascular History: Reports: Hypertension Gastrointestinal History: Reports: GERD Other Musculoskeletal History: osteopenia Psychiatric History: Reports: Anxiety Endocrine/Metabolic History: Reports: Hypothyroidism Oncologic (Cancer) History: Reports: Colon - Infectious Disease History Infectious Disease History: Reports: Chicken Pox - Past Surgical History HEENT Surgical History: Reports: Cataract Surgery GI Surgical History: Reports: Appendectomy, Colon, Colonoscopy Social & Family History - Tobacco Use Tobacco Use Status *Q: Former Tobacco User Used Tobacco, but Quit: Yes Month/Year Tobacco Last Used: 02/1961 - Caffeine Use Caffeine Use: Reports: None - Recreational Drug Use Recreational Drug Use: No H&P Review of Systems - Review of Systems: Review Of Systems: Comprehensive ROS is negative, except as noted in HPI. Exam - Exam Exam: See Below - Vital Signs Vital Signs: Last Vital Signs Temp 97.3 F 09/29/20 13:56 Pulse 88 09/29/20 15:45 Resp 20 09/29/20 15:45 BP 115/82 09/29/20 15:45 Pulse Ox 88 L 09/29/20 15:45 Weight: 121 lb - Exam General: Alert, Oriented, Mild Distress HEENT: EOMI, Nares Patent Neck: Supple Lungs: Decreased Breath Sounds, Crackles Cardiovascular: Irregular Rhythm, Tachycardia GI/Abdominal Exam: Soft, Non-Tender, No Distention Back Exam: Normal Inspection Extremities: Normal Inspection, No Pedal Edema Skin: Warm, Dry, Intact Neurological: Cranial Nerves Intact, Normal Speech Neuro Extensive - Mental Status: Alert, Oriented x3, Normal Mood/Affect Neuro Extensive - Motor, Sensory, Reflexes: CN II-XII Intact Psychiatric: Alert, Normal Affect, Normal Mood - Discharge Data Discharge Date: 10/03/20 Discharge Disposition: Home, Self-Care 01 Condition: Good - Referral to Home Health Date of Face to Face Encounter: 10/03/20 Reason for Homebound Status: [id number] meeting with patient. Patient has the following diagnoses; acute hypoxic respiratory failure secondary to CHF exacerbation, new onset atrial fibrillation with rapid ventricular response, also see discharge summary for additional diagnosis. Also see discharge summary for additional diagnosis. Patient needs home health care nursing services for; skilled assessment, vital signs, disease education/management, and medical education. Physical therapy for gait training, transfer training, safety education, neuromuscular reeducation, therapeutic exercise, caregiver training balance training, equipment recommendations. Occupational Therapy for; activities of daily living, balance training, functional mobility training, safety education, therapeutic activities, therapeutic exercises. [employer] for assistance with ADLs. Patient is currently homebound related decreased activity tolerance, decreased level of endurance, and need for FWW use. Patient will be followed by their primary care provider. Primary Care Physician: Whitney Newby MD - Patient Summary/Data Consults: Consultations 09/29/20 16:21 PT Evaluation and Treatment [CONS] Routine Respiratory Care Assess and Treatment [CONS] Routine - Patient Instructions Diet: Heart Healthy Diet Fluid Restriction: 1500 mL Activity: As Tolerated Driving: May Drive Today Other/Special Instructions: Activity and diet are as tolerated. Continue taking medications as instructed. You were now on systemic blood thinners which could cause a significant amount of bleeding if you sustain a fall or any trauma. Certainly if you cut yourself. If you fall or sustain any trauma please report to a local emergency department for an immediate evaluation for possible internal bleeding, especially if you hit your head. Fluid restriction of 1.5 to 2 L/day considering degree of heart failure. Limit sodium. Weigh yourself daily by standing scale. If you experience any signs or symptoms that warranted this admission please do not hesitate to call your primary care provider or present to an emergency department for an immediate evaluation. - Discharge Plan *PRESCRIPTION DRUG MONITORING PROGRAM REVIEWED*: Not Applicable *COPY OF PRESCRIPTION DRUG MONITORING REPORT IN PATIENT JESUSITA: Not Applicable Prescriptions/Med Rec: Diltiazem [Cardizem CD] 120 mg PO DAILY #30 cap.er Apixaban [Eliquis] 2.5 mg PO BID 1 Days #60 tablet Furosemide [Lasix] 40 mg PO DAILY #30 tab Metoprolol Tartrate [Lopressor] 50 mg PO BID #60 tablet Home Medications: Home Meds Alendronate [Fosamax] 70 mg PO WEEKLY 09/29/20 [History] Brimonidine Tartrate/Timolol [Combigan 0.2%-0.5% Eye Drops] 1 drop EYERT BID 09/29/20 [History] Levothyroxine [Synthroid] 50 mcg PO ACBREAKFAST 09/29/20 [History] Pantoprazole Sodium [Protonix] 40 mg PO DAILY 09/29/20 [History] Simvastatin 20 mg PO DAILY 09/29/20 [History] Apixaban [Eliquis] 2.5 mg PO BID 1 Days #60 tablet 10/03/20 [Rx] Diltiazem [Cardizem CD] 120 mg PO DAILY #30 cap.er 10/03/20 [Rx] Furosemide [Lasix] 40 mg PO DAILY #30 tab 10/03/20 [Rx] Metoprolol Tartrate [Lopressor] 50 mg PO BID #60 tablet 10/03/20 [Rx] Patient Handouts: Heart Failure Action Plan, Apixaban oral tablets, Atrial Fibrillation, [id number] Forms: ED Department Discharge Referrals: Whitney Newby MD [Primary Care Provider] - 10/11/20 10:00 am (This is the arrival time for this appointment) - Discharge Summary/Plan Comment DC Time >30 min.: Yes Total # of Minutes for Discharge Time: 45 minutes - General Info Date of Service: 10/03/20 Admission Dx/Problem (Free Text: Admission Diagnosis/Problem Admission Diagnosis/Problem Atrial fibrillation with rapid ventricular response Subjective Update: No acute events overnight. No specific new nursing concerns. Patient does not have any complaints. Heart rates controlled overnight as well as normal oxygenation without supplemental oxygen. - Patient Data Vitals - Most Recent: Last Vital Signs Temp 96.9 F 10/03/20 04:28 Pulse 88 10/03/20 09:18 Resp 16 10/03/20 04:28 BP 127/82 10/03/20 09:18 Pulse Ox 92 L 10/03/20 06:09 Weight - Most Recent: 113 lb 6.4 oz I&O - Last 24 hours: Intake & Output 10/02/20 10/03/20 10/03/20 22:59 06:59 14:59 Intake Total 740 300 Output Total 800 100 300 Balance -60 200 -300 Lab Results - Last 24 hrs: Laboratory Results - last 24 hr 10/03/20 10/03/20 Range/Units 04:29 04:29 WBC 9.24 (3.98-10.04) K/mm3 RBC 4.43 (3.98-5.22) M/mm3 Hgb 13.6 (11.2-15.7) gm/dl Hct 41.6 (34.1-44.9) % MCV 93.9 (79.4-94.8) fl MCH 30.7 (25.6-32.2) pg MCHC 32.7 (32.2-35.5) g/dl RDW Std Deviation 48.6 H (36.4-46.3) fL Plt Count 284 (182-369) K/mm3 MPV 11.4 (9.4-12.3) fl Neut % (Auto) 71.7 H (34.0-71.1) % Lymph % (Auto) 14.7 L (19.3-51.7) % [place] % (Auto) 10.6 (4.7-12.5) % Eos % (Auto) 2.5 (0.7-5.8) Baso % (Auto) 0.3 (0.1-1.2) % Neut # (Auto) 6.62 H (1.56-6.13) K/mm3 Lymph # (Auto) 1.36 (1.18-3.74) K/mm3 [place] # (Auto) 0.98 H (0.24-0.36) K/mm3 Eos # (Auto) 0.23 (0.04-0.36) K/mm3 Baso # (Auto) 0.03 (0.01-0.08) K/mm3 Sodium 144 (136-145) mEq/L Potassium 3.6 (3.5-5.1) mEq/L Chloride 105 (98-107) mEq/L Carbon Dioxide 28 (21-32) mEq/L Anion Gap 14.6 (5-15) BUN 32 H (7-18) mg/dL Creatinine 1.5 H (0.55-1.02) mg/dL Est Cr Clr Drug Dosing 18.62 mL/min Estimated GFR (MDRD) 33 (>60) mL/min BUN/Creatinine Ratio 21.3 H (14-18) Glucose 107 H (70-99) mg/dL Calcium 8.8 (8.5-10.1) mg/dL Magnesium 2.0 (1.8-2.4) mg/dL Med Orders - Current: Current Medications Acetaminophen (Acetaminophen 325 Mg Tab) 650 mg PO Q4H PRN PRN Reason: Pain (Mild 1-3)/fever Apixaban (Apixaban 2.5 Mg Tab) 2.5 mg PO BID [facility] Last Admin: 10/03/20 09:18 Dose: 2.5 mg Documented by: Brimonidine Tartrate (Brimonidine 0.2% Ophth Soln 5 Ml Bottle) 0 ml EYEBOTH BID [facility] Last Admin: 10/03/20 09:18 Dose: 1 drop Documented by: Diltiazem HCl (Diltiazem Ir 60 Mg Tab) 60 mg PO Q12HR [facility] Last Admin: 10/03/20 09:18 Dose: 60 mg Documented by: Furosemide (Furosemide 40 Mg Tab) 40 mg PO BID [facility] Last Admin: 10/03/20 09:19 Dose: 40 mg Documented by: Diltiazem HCl 100 mg/ Sodium (Chloride) 100 mls @ 5 mls/hr IV TITRATE [facility]; Protocol Levothyroxine Sodium (Levothyroxine 50 Mcg Tab) 50 mcg PO ACBREAKFAST [facility] Last Admin: 10/03/20 06:34 Dose: 50 mcg Documented by: Metoprolol Tartrate (Metoprolol Tartrate 5 Mg/5 Ml Sdv) 5 mg IVPUSH Q6H PRN PRN Reason: Tachycardia Last Admin: 09/30/20 13:43 Dose: 5 mg Documented by: Metoprolol Tartrate (Metoprolol Tartrate 50 Mg Tab) 50 mg PO BID [facility] Last Admin: 10/03/20 09:18 Dose: 50 mg Documented by: Ondansetron HCl (Ondansetron 4 Mg/2 Ml Sdv) 4 mg IV Q4H PRN PRN Reason: Nausea/Vomiting Pantoprazole Sodium (Pantoprazole 40 Mg Tab.Cr) 40 mg PO DAILY [facility] Last Admin: 10/03/20 09:19 Dose: 40 mg Documented by: Sodium Chloride (Sodium Chloride 0.9% 10 Ml Syringe) 10 ml FLUSH ASDIRECTED PRN PRN Reason: Keep Vein Open Last Admin: 09/30/20 20:02 Dose: 10 ml Documented by: Timolol Maleate (Timolol Maleate 0.5% Ophth Soln 5 Ml Bottle) 0 ml EYEBOTH BID [facility] Last Admin: 10/03/20 09:16 Dose: 1 drop Documented by: Discontinued Medications Diltiazem HCl (Diltiazem 50 Mg/10 Ml Sdv) 10 mg IVPUSH ONETIME ONE Stop: 09/29/20 14:47 Last Admin: 09/29/20 14:58 Dose: 10 mg Documented by: Furosemide (Furosemide 40 Mg/4 Ml Vial) Confirm Administered Dose 40 mg .ROUTE .STK-MED ONE Stop: 09/29/20 15:23 Last Admin: 09/29/20 15:39 Dose: Not Given Documented by: Furosemide (Furosemide 40 Mg/4 Ml Vial) 40 mg IVPUSH NOW ONE Stop: 09/29/20 15:25 Last Admin: 09/29/20 15:26 Dose: 40 mg Documented by: Furosemide (Furosemide 20 Mg/2 Ml Vial) 20 mg IVPUSH BID [facility] Last Admin: 09/30/20 20:03 Dose: 20 mg Documented by: Furosemide (Furosemide 40 Mg Tab) 40 mg PO DAILY [facility] Last Admin: 10/01/20 08:12 Dose: 40 mg Documented by: Diltiazem HCl 100 mg/ Sodium (Chloride) 100 mls @ 10 mls/hr IV TITRATE [facility]; Protocol Last Titration: 09/29/20 20:00 Dose: 0 mg/hr, 0 mls/hr Documented by: Ceftriaxone Sodium 1 gm/ (Sodium Chloride) 100 mls @ 200 mls/hr IV Q24H [facility] Last Admin: 09/30/20 17:47 Dose: 200 mls/hr Documented by: Metoprolol Succinate (Metoprolol Succinate 25 Mg Tab.Er) 25 mg PO DAILY [facility] Last Admin: 09/30/20 08:20 Dose: 25 mg Documented by: Metoprolol Tartrate (Metoprolol Tartrate 25 Mg Tab) 25 mg PO Q12H [facility] Metoprolol Tartrate (Metoprolol Tartrate 25 Mg Tab) 25 mg PO Q12H [facility] Last Admin: 09/30/20 14:22 Dose: 25 mg Documented by: Metoprolol Tartrate (Metoprolol Tartrate 25 Mg Tab) 25 mg PO BID [facility] Last Admin: 09/30/20 20:02 Dose: 25 mg Documented by: Non-Formulary Medication (Brimonidine Tartrate/Timolol [Combigan 0.2%-0.5% Eye Drops]) 1 drop OP BID [facility] Last Admin: 10/01/20 08:13 Dose: Not Given Documented by: Non-Formulary Medication (Pantoprazole Sodium) 40 mg PO DAILY [facility] Last Admin: 10/01/20 08:15 Dose: Not Given Documented by: Potassium Chloride (Potassium Chloride 20 Meq Tab.Er) 40 meq PO BID [facility] Last Admin: 10/01/20 20:23 Dose: 40 meq Documented by: - Exam Quality Assessment: Denies: Supplemental Oxygen General: Reports: Alert, No Acute Distress Lungs: Reports: Clear to Auscultation, Normal Respiratory Effort Cardiovascular: Reports: Regular Rate, Irregular Rhythm (Atrial fibrillation on the monitor) GI/Abdominal Exam: Normal Bowel Sounds, Soft, Non-Tender Back Exam: Reports: Normal Inspection Extremities: Normal Inspection, Normal Range of Motion, Other (Ambulates with a walker) Skin: Reports: Warm, Dry Neurological: Reports: No New Focal Deficit
== END 2020-10-03 10:30 | disposition home or self-care (01) | DRG 291 ==
LOC: JD.ED 13:51 → JD.ICU 16:24
PROVIDERS: ADMIT Hospitalist; ATTEND Hospitalist
PROC: 5A09457 Assistance with Respiratory Ventilation, 24-96 Consecutive Hours, Continuous Positive Airway Pressure (ICD-10-PCS; principal; 2020-09-29)
DX: I13.0 Hypertensive heart and chronic kidney disease with heart failure and stage 1 through stage 4 chronic kidney disease, or unspecified chronic kidney disease (principal); I50.9 Heart failure, unspecified; J96.01 Acute respiratory failure with hypoxia; I50.21 Acute systolic (congestive) heart failure; E03.8 Other specified hypothyroidism; I10 Essential (primary) hypertension; H40.9 Unspecified glaucoma; E78.00 Pure hypercholesterolemia, unspecified; J44.9 Chronic obstructive pulmonary disease, unspecified; K44.9 Diaphragmatic hernia without obstruction or gangrene; M19.90 Unspecified osteoarthritis, unspecified site; M81.0 Age-related osteoporosis without current pathological fracture; E11.40 Type 2 diabetes mellitus with diabetic neuropathy, unspecified; I48.91 Unspecified atrial fibrillation; E03.9 Hypothyroidism, unspecified; N18.9 Chronic kidney disease, unspecified; K21.9 Gastro-esophageal reflux disease without esophagitis; E78.5 Hyperlipidemia, unspecified; Z20.822 Contact with and (suspected) exposure to COVID-19; E87.6 Hypokalemia; I08.1 Rheumatic disorders of both mitral and tricuspid valves; H54.7 Unspecified visual loss; M85.80 Other specified disorders of bone density and structure, unspecified site; F41.9 Anxiety disorder, unspecified; Z98.49 Cataract extraction status, unspecified eye; Z90.49 Acquired absence of other specified parts of digestive tract; Z88.6 Allergy status to analgesic agent; Z88.8 Allergy status to other drugs, medicaments and biological substances; Z79.890 Hormone replacement therapy; Z79.899 Other long term (current) drug therapy; Z87.891 Personal history of nicotine dependence; Z79.01 Long term (current) use of anticoagulants
CPT/HCPCS: 36415; 36600; 71045 ×2; 80053; 81001; 82553; 82803; 83605; 83735; 83880; 84443; 84484; 85025; 85610; 85730; 86140; 87086; 93005; 94660; 96365; 96375; 99285; J1940; J3490 ×2; U0002; 80048; 84439; 84481; 93010; 93306; 97116-GP; 97161-GP; 99222; 99232; 99239; A9270-GY; J0696

== ENCOUNTER 2020-11-18 18:24 | Emergency (ER) | payer MEDICARE, OTHER ==
[2020-11-18] MEDS ORDERED: Sodium Chloride 0.9% 500 ML IV ONE (19:40)
--- NOTE | 2020-11-18 19:43 | EDM.PDOC ---
ED HPI GENERAL MEDICAL PROBLEM - General Chief Complaint: Gastrointestinal Problem Stated Complaint: NAUSEA/VOMITING Time Seen by Provider: 11/18/20 19:19 Source of Information: Reports: Patient, Family (Daughter) History Limitations: Reports: No Limitations - History of Present Illness INITIAL COMMENTS - FREE TEXT/NARRATIVE: Mrs. Brower is a very pleasant 89-year-old woman who now presents to the ED stating that she has had dyspnea on exertion ever since she was diagnosed with atrial fibrillation on 09/29/2020. She states that she has had a dry mouth for years, but that it has been worse over the past few weeks. She states that due to her dry mouth, she has a bad taste in her mouth, making it difficult for her to drink water and take her medications. She reports having nausea and vomiting for the past week. Asked what, specifically, brought the patient to the ED tonight, since these symptoms have been going on for so long, the patient's daughter volunteered that she came to visit her mother, and after learning of her symptoms, felt that the patient needed to be seen tonight. Here in the ED, the patient's initial BP is found to be low at 82/56, with tachy cardia of 109 bpm. She is afebrile, saturating 90% on room air. She appears to be relatively comfortable, in no acute distress. The patient denies having a recent fever, chills, sore throat, ear pain, nasal or sinus congestion, cough, dyspnea at rest, chest pain, palpitations, constipation, diarrhea, abdominal pain, urinary symptoms, recent weight gain or weight loss, recent bloody bowel movements or black bowel movements, recent joint aches, headaches, or rashes. The patient's PCP is Dr. Whitney Newby. Her Diabetes Physician is Dr. Roseanne Mcnally. She has received 2 COVID vaccinations. - Related Data Allergies Allergy/AdvReac Type Severity Reaction Status Date / Time aspirin Allergy Mild Abdominal Verified 11/18/20 18:56 Pain Home Meds: Home Meds Alendronate [Fosamax] 70 mg PO WEEKLY 09/29/20 [History] Brimonidine Tartrate/Timolol [Combigan 0.2%-0.5% Eye Drops] 1 drop EYERT BID 09/29/20 [History] Levothyroxine [Synthroid] 50 mcg PO ACBREAKFAST 09/29/20 [History] Pantoprazole Sodium [Protonix] 40 mg PO DAILY 09/29/20 [History] Simvastatin 20 mg PO DAILY 09/29/20 [History] Apixaban [Eliquis] 2.5 mg PO BID 1 Days #60 tablet 10/03/20 [Rx] Diltiazem [Cardizem CD] 120 mg PO DAILY #30 cap.er 10/03/20 [Rx] Furosemide [Lasix] 40 mg PO DAILY #30 tab 10/03/20 [Rx] Metoprolol Tartrate [Lopressor] 50 mg PO BID #60 tablet 10/03/20 [Rx] Past Medical History HEENT History: Reports: Glaucoma Cardiovascular History: Reports: Afib, CAD (mild, diffuse, non-reversible on nuclear ST 11/15/2020), Heart Failure (LVEF 40% by echo 10/02/2020), High Cholesterol, Hypertension Respiratory History: Reports: COPD (suspected, not PFT-proven) Gastrointestinal History: Reports: GERD, Hiatal Hernia Musculoskeletal History: Reports: Osteoarthritis, Osteoporosis Psychiatric History: Reports: Anxiety (untreated) Endocrine/Metabolic History: Reports: Hypothyroidism Oncologic (Cancer) History: Reports: Colon (s/p hemicolectomy, CTx) - Infectious Disease History Infectious Disease History: Reports: Chicken Pox - Past Surgical History HEENT Surgical History: Reports: Adenoidectomy, Cataract Surgery (bilateral), Oral Surgery (dental extractions), Tonsillectomy GI Surgical History: Reports: Appendectomy, Colon (hemicolectomy for colon CA), Colonoscopy Social & Family History - Tobacco Use Tobacco Use Status *Q: Former Tobacco User Years of Tobacco use: 13 Packs/Tins Daily: 0.5 Month/Year Tobacco Last Used: Quit 1960 Tobacco Use Comment: Started smoking 1947 - Caffeine Use Caffeine Use: Reports: Soda - Alcohol Use Alcohol Use History: No - Recreational Drug Use Recreational Drug Use: No - Living Situation & Occupation Living situation: Reports: , Alone Occupation: Retired ED ROS GENERAL - Review of Systems Review Of Systems: Comprehensive ROS is negative, except as noted in HPI. ED EXAM, GENERAL - Physical Exam Exam: See Below Exam Limited By: No Limitations General Appearance: Alert, No Apparent Distress, Thin Eye Exam: Bilateral Eye: EOMI, Normal Inspection Ears: Normal External Exam, Hearing Grossly Normal Nose: Normal Inspection Throat/Mouth: Normal Lips, Normal Voice, No Airway Compromise, Other (Dry oral mucosa) Head: Atraumatic, Normocephalic Neck: Normal Inspection, Full Range of Motion Respiratory/Chest: No Respiratory Distress, Lungs Clear, Normal Breath Sounds, No Accessory Muscle Use. No: Decreased Breath Sounds, Crackles, Rhonchi, Wheezing, Stridor, Prolonged Expiration Cardiovascular: No Gallop, No JVD, No Murmur, No Rub, Tachycardia, Irregularly Irregular Peripheral Pulses: 2+: Radial (L), Radial (R) GI/Abdominal: Normal Bowel Sounds, Soft, Non-Tender, No Organomegaly, No Di stention, No Abnormal Bruit, No Mass Back Exam: Normal Inspection, Full Range of Motion, NT Extremities: Normal Inspection, Normal Range of Motion, Normal Capillary Refill, Other (1+ pretibial edema bilaterally) Neurological: Alert, Oriented, Normal Cognition, No Motor/Sensory Deficits Psychiatric: Normal Affect Skin Exam: Warm, Dry, Intact, Normal Color, No Rash #1 Interpretation EKG Date: 11/18/20 Time: 19:30 Rhythm: A-Fib Rate (Beats/Min): 106 [place]: RAD-Right [place] Deviation P-Wave: Absent QRS: LBBB ST-T: Normal (T-wave inversions in III, aVF, and V6, but no ischemic changes) QT: Prolonged (QTc 536 ms) Comparison: No Change (09/29/2020) Course - Vital Signs Last Recorded V/S: Last Vital Signs Temp 36.9 C 11/18/20 18:52 Pulse 109 H 11/18/20 18:52 Resp 16 11/18/20 18:52 BP 82/56 L 11/18/20 18:52 Pulse Ox 90 L 11/18/20 18:52 - Orders/Labs/Meds Labs: Laboratory Tests 11/18/20 11/18/20 11/18/20 Range/Units 19:45 19:50 20:00 WBC (3.98-10.04) K/mm3 RBC (3.98-5.22) M/mm3 Hgb (11.2-15.7) gm/dl Hct (34.1-44.9) % MCV (79.4-94.8) fl MCH (25.6-32.2) pg MCHC (32.2-35.5) g/dl RDW Std Deviation (36.4-46.3) fL Plt Count (182-369) K/mm3 MPV (9.4-12.3) fl Neutrophils % (Manual) (40-60) % Band Neutrophils % (0-10) % Lymphocytes % (Manual) (20-40) % Atypical Lymphs % % Monocytes % (Manual) (2-10) % Eosinophils % (Manual) (0.7-5.8) % Basophils % (Manual) (0.1-1.2) Platelet Estimate Anisocytosis Macrocytosis RBC Morph Comment Puncture Site Rt brachial ABG pH 7.42 (7.35-7.45) ABG pCO2 27.2 L (35.0-45.0) mmHg ABG pO2 57.0 L (80.0-100.0) mmHg ABG HCO3 17.6 L (22.0-26.0) meq/L ABG O2 Saturation 87.0 L (96.0-97.0) % ABG Base Excess -5.1 L (-2-2.0) A-a Gradient 59 mmHg O2 Delivery Device Room air FiO2 21.00 (21.00-100.00) % Sodium (136-145) mEq/L Potassium (3.5-5.1) mEq/L Chloride (98-107) mEq/L Carbon Dioxide (21-32) mEq/L Anion Gap (5-15) BUN (7-18) mg/dL Creatinine (0.55-1.02) mg/dL Est Cr Clr Drug Dosing Estimated GFR (MDRD) (>60) mL/min BUN/Creatinine Ratio (14-18) Glucose (70-99) mg/dL Lactic Acid (0.4-2.0) mmol/L Calcium (8.5-10.1) mg/dL Magnesium (1.8-2.4) mg/dL Total Bilirubin (0.2-1.0) mg/dL AST (15-37) U/L ALT (14-59) U/L Alkaline Phosphatase (46-116) U/L Troponin I (0.00-0.056) ng/mL C-Reactive Protein (<1.0) mg/dL Total Protein (6.4-8.2) g/dl Albumin (3.4-5.0) g/dl Globulin gm/dL Albumin/Globulin Ratio (1-2) TSH 3rd Generation (0.358-3.74) uIU/mL Urine Color Yellow (Yellow) Urine Appearance Cloudy H (Clear) Urine pH 5.0 (5.0-8.0) Ur Specific [place] > or = 1.030 (1.005-1.030) Urine Protein 3+ H (Negative) Urine Glucose (UA) Negative (Negative) Urine Ketones Trace H (Negative) Urine Occult Blood Negative (Negative) Urine Nitrite Negative (Negative) Urine Bilirubin 2+ H (Negative) Urine Urobilinogen 2.0 H (0.2-1.0) Ur Leukocyte Esterase Negative (Negative) U Hyaline Cast (Auto) 5-10 H (0-5) /lpf Urine RBC 0-5 (0-5) /hpf Urine WBC 0-5 (0-5) /hpf Ur Squamous Epith Cells 5-10 H (0-5) /hpf Amorphous Sediment Many H (NOT SEEN) /hpf Urine Bacteria Moderate H (FEW) /hpf Urine Mucus Few (FEW) /hpf SARS-CoV-2 RNA (CLAUDE) Negative (NEGATIVE) 11/18/20 11/18/20 11/18/20 Range/Units 20:09 20:09 20:09 WBC 10.19 H (3.98-10.04) K/mm3 RBC 4.47 (3.98-5.22) M/mm3 Hgb 14.0 (11.2-15.7) gm/dl Hct 44.8 (34.1-44.9) % MCV 100.2 H D (79.4-94.8) fl MCH 31.3 (25.6-32.2) pg MCHC 31.3 L (32.2-35.5) g/dl RDW Std Deviation 61.7 H (36.4-46.3) fL Plt Count 254 (182-369) K/mm3 MPV 12.5 H (9.4-12.3) fl Neutrophils % (Manual) 78 H (40-60) % Band Neutrophils % 0 (0-10) % Lymphocytes % (Manual) 17 L (20-40) % Atypical Lymphs % 0 % Monocytes % (Manual) 5 (2-10) % Eosinophils % (Manual) 0 L (0.7-5.8) % Basophils % (Manual) 0 L (0.1-1.2) Platelet Estimate Adequate Anisocytosis 1+ slight Macrocytosis 1+ slight RBC Morph Comment Not Reportable Puncture Site ABG pH (7.35-7.45) ABG pCO2 (35.0-45.0) mmHg ABG pO2 (80.0-100.0) mmHg ABG HCO3 (22.0-26.0) meq/L ABG O2 Saturation (96.0-97.0) % ABG Base Excess (-2-2.0) A-a Gradient mmHg O2 Delivery Device FiO2 (21.00-100.00) % Sodium 142 (136-145) mEq/L Potassium 4.6 (3.5-5.1) mEq/L Chloride 103 (98-107) mEq/L Carbon Dioxide 24 (21-32) mEq/L Anion Gap 19.6 H (5-15) BUN 58 H D (7-18) mg/dL Creatinine 2.5 H (0.55-1.02) mg/dL Est Cr Clr Drug Dosing TNP Estimated GFR (MDRD) 18 (>60) mL/min BUN/Creatinine Ratio 23.2 H (14-18) Glucose 148 H (70-99) mg/dL Lactic Acid 4.1 H* (0.4-2.0) mmol/L Calcium 9.0 (8.5-10.1) mg/dL Magnesium 2.7 H (1.8-2.4) mg/dL Total Bilirubin 2.6 H (0.2-1.0) mg/dL AST 99 H (15-37) U/L ALT 119 H (14-59) U/L Alkaline Phosphatase 82 (46-116) U/L Troponin I < 0.017 (0.00-0.056) ng/mL C-Reactive Protein <0.2 (<1.0) mg/dL Total Protein 6.4 (6.4-8.2) g/dl Albumin 3.4 (3.4-5.0) g/dl Globulin 3.0 gm/dL Albumin/Globulin Ratio 1.1 (1-2) TSH 3rd Generation 9.314 H (0.358-3.74) uIU/mL Urine Color (Yellow) Urine Appearance (Clear) Urine pH (5.0-8.0) Ur Specific [place] (1.005-1.030) Urine Protein (Negative) Urine Glucose (UA) (Negative) Urine Ketones (Negative) Urine Occult Blood (Negative) Urine Nitrite (Negative) Urine Bilirubin (Negative) Urine Urobilinogen (0.2-1.0) Ur Leukocyte Esterase (Negative) U Hyaline Cast (Auto) (0-5) /lpf Urine RBC (0-5) /hpf Urine WBC (0-5) /hpf Ur Squamous Epith Cells (0-5) /hpf Amorphous Sediment (NOT SEEN) /hpf Urine Bacteria (FEW) /hpf Urine Mucus (FEW) /hpf SARS-CoV-2 RNA (CLAUDE) (NEGATIVE) 11/18/20 Range/Units 23:03 WBC (3.98-10.04) K/mm3 RBC (3.98-5.22) M/mm3 Hgb (11.2-15.7) gm/dl Hct (34.1-44.9) % MCV (79.4-94.8) fl MCH (25.6-32.2) pg MCHC (32.2-35.5) g/dl RDW Std Deviation (36.4-46.3) fL Plt Count (182-369) K/mm3 MPV (9.4-12.3) fl Neutrophils % (Manual) (40-60) % Band Neutrophils % (0-10) % Lymphocytes % (Manual) (20-40) % Atypical Lymphs % % Monocytes % (Manual) (2-10) % Eosinophils % (Manual) (0.7-5.8) % Basophils % (Manual) (0.1-1.2) Platelet Estimate Anisocytosis Macrocytosis RBC Morph Comment Puncture Site ABG pH (7.35-7.45) ABG pCO2 (35.0-45.0) mmHg ABG pO2 (80.0-100.0) mmHg ABG HCO3 (22.0-26.0) meq/L ABG O2 Saturation (96.0-97.0) % ABG Base Excess (-2-2.0) A-a Gradient mmHg O2 Delivery Device FiO2 (21.00-100.00) % Sodium (136-145) mEq/L Potassium (3.5-5.1) mEq/L Chloride (98-107) mEq/L Carbon Dioxide (21-32) mEq/L Anion Gap (5-15) BUN (7-18) mg/dL Creatinine (0.55-1.02) mg/dL Est Cr Clr Drug Dosing Estimated GFR (MDRD) (>60) mL/min BUN/Creatinine Ratio (14-18) Glucose (70-99) mg/dL Lactic Acid 3.5 H* (0.4-2.0) mmol/L Calcium (8.5-10.1) mg/dL Magnesium (1.8-2.4) mg/dL Total Bilirubin (0.2-1.0) mg/dL AST (15-37) U/L ALT (14-59) U/L Alkaline Phosphatase (46-116) U/L Troponin I (0.00-0.056) ng/mL C-Reactive Protein (<1.0) mg/dL Total Protein (6.4-8.2) g/dl Albumin (3.4-5.0) g/dl Globulin gm/dL Albumin/Globulin Ratio (1-2) TSH 3rd Generation (0.358-3.74) uIU/mL Urine Color (Yellow) Urine Appearance (Clear) Urine pH (5.0-8.0) Ur Specific [place] (1.005-1.030) Urine Protein (Negative) Urine Glucose (UA) (Negative) Urine Ketones (Negative) Urine Occult Blood (Negative) Urine Nitrite (Negative) Urine Bilirubin (Negative) Urine Urobilinogen (0.2-1.0) Ur Leukocyte Esterase (Negative) U Hyaline Cast (Auto) (0-5) /lpf Urine RBC (0-5) /hpf Urine WBC (0-5) /hpf Ur Squamous Epith Cells (0-5) /hpf Amorphous Sediment (NOT SEEN) /hpf Urine Bacteria (FEW) /hpf Urine Mucus (FEW) /hpf SARS-CoV-2 RNA (CLAUDE) (NEGATIVE) Meds: Medications Discontinued Medications Generic Name Dose Route Start Last Admin Trade Name Freq PRN Reason Stop Dose Admin Sodium Chloride 500 mls @ 999 mls/hr 11/18/20 19:40 11/18/20 20:14 Normal Saline IV 11/18/20 20:10 999 mls/hr .BOLUS ONE Administration - Re-Assessments/Exams Free Text/Narrative Re-Assessment/Exam: 11/18/20 19:41 An ECG, obtained at triage, finds the patient in atrial fibrillation with RVR. The T waves are inverted in III, aVF, and V6, but I see no ischemic changes. I have ordered a work-up that includes numerous blood tests, 2 sets of blood cultures, an ABG, a urinalysis by quick catheter, swabs for the SARS-CoV-2 virus and influenza A + B viruses, and a portable chest x-ray. In the meantime, the patient will be given a 500 mL bolus of NS. 11/18/20 20:59 Portable chest radiograph reviewed. There is mild cardiomegaly, but no pulmonary vascular congestion to suggest decompensated CHF. The horizontal fissure is visible. Likely small pleural effusion at the left base. No focal infiltrate. No pneumothorax. There is aortic sclerosis. There is thoracic scoliosis. There is osteopenia. Questionable old right rib fractures. Formal read per the Radiologist pending. The patient's CBC is remarkable for mild leukocytosis of 10.19, but with 0% bandemia, and the remainder of her CBC being unremarkable. Her CMP is remarkable for a BUN/Cr elevated at 58/2.5, modest hyperglycemia of 148, a TBil elevated at 2.6, and an AST/ALT modestly elevated at 99/119, respectively, with the remainder of her CMP being unremarkable. Her magnesium level is elevated at 2.7. Her lactic acid level is significantly elevated at 4.1. Her CRP is undetectably low. Her troponin is undetectably low. Her TSH is elevated at 9.314. Her ABG demonstrates a primary respiratory alkalosis with secondary combined metabolic acidosis and metabolic alkalosis. Her urinalysis is remarkable for cloudy appearance, occult blood negative with 0-5 RBCs, leukocyte esterase negative with 0-5 WBCs, nitrate negative with moderate bacteria, and 5-10 squamous epithelial cells. Review of prior labs finds that the patient is a BUN/Cr was 32/1.5, and her TBil 1.5 on 09/29/2020. Her AST/ALT were normal at that time. Her lactic acid level was normal at 1.1 at that time. While the patient's lactic acid level is elevated, her bicarbonate level is normal at 24. Clearly, the patient is not septic. Her elevated lactic acid level is not due to tissue hypoperfusion. It is most likely that the patient has become intravascularly depleted due to the furosemide that she is on, and that the resultant renal insufficiency is responsible for decreased lactate consumption, leading to an elevated lactic acid level. She was given a 500 mL bolus of IV fluid, and her lactic acid level should be repeated around 23:00, however, given her history of CHF, I am reluctant to give her too much IV fluid, simply to treat a lab value. 11/18/20 23:53 The patient's repeat lactic acid level is down to 3.5. 11/18/20 23:58 Test results discussed with the patient and her daughter. The patient confirmed that she has not been drinking any water for the past few days, due to a bad taste in her mouth. The bad taste in her mouth is likely due to dry oral mucosa. I recommended that she not take her morning furosemide for the next few days, and try to drink some water. The daughter will then have the patient follow-up with her Diabetes Physician this coming week - perhaps the patient would benefit from [id number] furosemide. Departure - Departure Time of Disposition: 00:00 Disposition: Home, Self-Care 01 Condition: Good Clinical Impression: Intravascular volume depletion, Acute on chronic renal insufficiency - Discharge Information *PRESCRIPTION DRUG MONITORING PROGRAM REVIEWED*: Not Applicable *COPY OF PRESCRIPTION DRUG MONITORING REPORT IN PATIENT JESUSITA: Not Applicable Instructions: Dehydration, Elderly, Rehydration, Elderly Referrals: Whitney Newby MD [Primary Care Provider] - Roseanne Mcnally MD [Ordering Only Provider] - Forms: ED Department Discharge Additional Instructions: You were seen in the emergency room after experiencing shortness of breath with exertion since 09/29/2020, a worse than usual dry mouth, especially over the past few weeks, causing difficulty drinking water, and nausea and vomiting for 1 week. Work-up in the ER included numerous blood tests, 2 sets of blood cultures, an arterial blood gas, a swab for the SARS-CoV-2 virus and influenza A + B viruses, a urinalysis, a chest x-ray, and an ECG. Your work-up found that you are dry, and that your kidney function is more impaired than usual. You were treated with some IV fluid in the ER, with some improvement of your abnormal labs. We recommend that you stop taking your usually scheduled Lasix 40 mg every morning, for the next few days. Try to increase your fluid intake. Please follow-up with your Diabetes Physician, Dr. Roseanne Mcnally, this coming week. She may want to modify your dose of Lasix. If any other problems, please do not hesitate to return to the ER. Sepsis Event Note (ED) - Evaluation Sepsis Screening Result: No Definite Risk
--- NOTE | 2020-11-19 08:52 | CR ---
Chest: Portable view of the chest was obtained. Comparison: Prior chest x-ray of 09/29/20. Heart is enlarged. Pulmonary vessels are slightly increased. Slight pleural effusion is noted within the left base. Bony structures are osteopenic. Vascular calcification is noted. Old left-sided rib fractures are noted. Impression: 1. Cardiomegaly with minimal pulmonary vascular congestion and small left-sided pleural effusion. 2. Other findings believed to be chronic as noted above. Diagnostic code #3
== END 2020-11-19 00:10 | disposition home or self-care (01) ==
LOC: JD.ED 18:24
DX: I12.9 Hypertensive chronic kidney disease with stage 1 through stage 4 chronic kidney disease, or unspecified chronic kidney disease (principal); N18.9 Chronic kidney disease, unspecified; E86.9 Volume depletion, unspecified; I48.91 Unspecified atrial fibrillation; I25.10 Atherosclerotic heart disease of native coronary artery without angina pectoris; E78.00 Pure hypercholesterolemia, unspecified; E03.9 Hypothyroidism, unspecified; Z88.6 Allergy status to analgesic agent; Z79.899 Other long term (current) drug therapy; Z90.49 Acquired absence of other specified parts of digestive tract; Z87.891 Personal history of nicotine dependence; Z20.822 Contact with and (suspected) exposure to COVID-19
CPT/HCPCS: 36415; 36600; 71045; 80053; 81001; 82803; 83605; 83735; 84443; 84484; 85007; 85027; 86140; 87040; 87804; 93005; 99285; J7030; U0002

== ENCOUNTER 2020-11-28 19:31 | Emergency (ER) | payer MEDICARE, OTHER ==
[2020-11-28] MEDS ORDERED: Sodium Chloride 0.9% 10 ML Syringe FLUSH PRN (19:36)
--- NOTE | 2020-11-28 20:04 | EDM.PDOC ---
ED HPI GENERAL MEDICAL PROBLEM - General Chief Complaint: Cardiovascular Problem Stated Complaint: [facility] Time Seen by Provider: 11/28/20 19:36 Source of Information: Reports: Patient, EMS History Limitations: Reports: No Limitations - History of Present Illness INITIAL COMMENTS - FREE TEXT/NARRATIVE: The patient presents by [facility] for not feeling well, cough and shortness of breath. This has been going on for a couple of weeks. She has no fever or chills. She does have swelling in her feet. She has a history of atrial fibrillation and EMS said her heart rated was all over the place above 200 and back down to normal. Her heart rate now is 105 and it appears to be Atrial fibrillation. She says she has a history of CHF. She has not been ar ound anyone with COVID as far as she knows. She has no chest pain. She has no abdominal pain, nausea, vomiting or dysuria. Onset: Gradual Duration: Week(s): (2) Severity: Moderate Improves with: Reports: None Worsens with: Reports: None Associated Symptoms: Reports: Cough, Shortness of Breath. Denies: Chest Pain, Fever/Chills, Headaches, Nausea/Vomiting - Related Data Allergies Allergy/AdvReac Type Severity Reaction Status Date / Time aspirin Allergy Mild Abdominal Verified 11/28/20 19:42 Pain Home Meds: Home Meds Alendronate [Fosamax] 70 mg PO WEEKLY 09/29/20 [History] Brimonidine Tartrate/Timolol [Combigan 0.2%-0.5% Eye Drops] 1 drop EYERT BID 09/29/20 [History] Levothyroxine [Synthroid] 50 mcg PO ACBREAKFAST 09/29/20 [History] Pantoprazole Sodium [Protonix] 40 mg PO DAILY 09/29/20 [History] Simvastatin 20 mg PO DAILY 09/29/20 [History] Apixaban [Eliquis] 2.5 mg PO BID 1 Days #60 tablet 10/03/20 [Rx] Diltiazem [Cardizem CD] 120 mg PO DAILY #30 cap.er 10/03/20 [Rx] Furosemide [Lasix] 40 mg PO DAILY #30 tab 10/03/20 [Rx] Metoprolol Tartrate [Lopressor] 50 mg PO BID #60 tablet 10/03/20 [Rx] Past Medical History HEENT History: Reports: Glaucoma Cardiovascular History: Reports: Afib, CAD (mild, diffuse, non-reversible on nuclear ST 11/15/2020), Heart Failure (LVEF 40% by echo 10/02/2020), High Cholesterol, Hypertension Respiratory History: Reports: COPD (suspected, not PFT-proven) Gastrointestinal History: Reports: GERD, Hiatal Hernia Musculoskeletal History: Reports: Osteoarthritis, Osteoporosis Other Musculoskeletal History: osteopenia Psychiatric History: Reports: Anxiety (untreated) Endocrine/Metabolic History: Reports: Hypothyroidism Oncologic (Cancer) History: Reports: Colon (s/p hemicolectomy, CTx) - Infectious Disease History Infectious Disease History: Reports: Chicken Pox - Past Surgical History GI Surgical History: Reports: Appendectomy, Colon (hemicolectomy for colon CA), Colonoscopy Social & Family History - Family History Family Medical History: No Pertinent Family History - Caffeine Use Caffeine Use: Reports: Soda - Living Situation & Occupation Living situation: Reports: , Alone Occupation: Retired ED ROS GENERAL - Review of Systems Review Of Systems: See Below Constitutional: Reports: No Symptoms HEENT: Reports: No Symptoms Respiratory: Reports: Shortness of Breath, Cough Cardiovascular: Reports: No Symptoms Endocrine: Reports: No Symptoms GI/Abdominal: Reports: No Symptoms : Reports: No Symptoms Musculoskeletal: Reports: No Symptoms ED EXAM, GENERAL - Physical Exam Exam: See Below Exam Limited By: No Limitations General Appearance: Alert, No Apparent Distress Ears: Normal External Exam Nose: Normal Inspection Head: Atraumatic, Normocephalic Neck: Normal Inspection Respiratory/Chest: No Respiratory Distress, Decreased Breath Sounds, Rales Cardiovascular: No Murmur, Tachycardia, Irregularly Irregular, Other (Edema to both lower legs) GI/Abdominal: Soft, Non-Tender, No Organomegaly, No Mass Back Exam: Normal Inspection Extremities: Other (Edema to both lower legs) Neurological: Alert, Oriented, No Motor/Sensory Deficits #1 Interpretation EKG Date: 11/28/20 Time: 19:37 Rhythm: A-Fib Rate (Beats/Min): 112 [place]: Normal P-Wave: Absent QRS: Wide ST-T: Depressed (Borderline ST depression lateral leads) QT: Normal Comparison: No Change Course - Vital Signs Last Recorded V/S: Last Vital Signs Temp 98.5 F 11/28/20 19:43 Pulse 53 L 11/28/20 22:18 Resp 16 11/28/20 22:18 BP 129/78 11/28/20 22:18 Pulse Ox 94 L 11/28/20 22:18 - Orders/Labs/Meds Orders: Active Orders 24 hr Category Date Time Status Cardiac Monitoring [RC] . DIRECTED Care 11/28/20 19:37 Active Oxygen Therapy [RC] PRN Care 11/28/20 19:37 Active Peripheral IV Care [RC] . DIRECTED Care 11/28/20 19:37 Active Chest 1V Frontal [CR] Stat Exams 11/28/20 19:38 Taken Sodium Chloride 0.9% [Saline Flush] Med 11/28/20 19:36 Active 10 ml FLUSH ASDIRECTED PRN Peripheral IV Insertion Adult [OM.PC] Stat Oth 11/28/20 19:36 Ordered Medication Orders Sodium Chloride (Sodium Chloride 0.9% 10 Ml Syringe) 10 ml FLUSH ASDIRECTED PRN PRN Reason: Keep Vein Open Last Admin: 11/28/20 19:46 Dose: 10 ml Documented by: EZE Labs: Laboratory Tests 11/28/20 11/28/20 11/28/20 Range/Units 19:39 19:57 19:57 WBC 11.85 H (3.98-10.04) K/mm3 RBC 4.61 (3.98-5.22) M/mm3 Hgb 14.6 (11.2-15.7) gm/dl Hct 46.2 H (34.1-44.9) % MCV 100.2 H (79.4-94.8) fl MCH 31.7 (25.6-32.2) pg MCHC 31.6 L (32.2-35.5) g/dl RDW Std Deviation 64.1 H (36.4-46.3) fL Plt Count 194 (182-369) K/mm3 MPV 11.9 (9.4-12.3) fl Neut % (Auto) 88.0 H (34.0-71.1) % Lymph % (Auto) 4.1 L (19.3-51.7) % [place] % (Auto) 5.1 (4.7-12.5) % Eos % (Auto) 2.4 (0.7-5.8) Baso % (Auto) 0.1 (0.1-1.2) % Neut # (Auto) 10.43 H (1.56-6.13) K/mm3 Lymph # (Auto) 0.49 L (1.18-3.74) K/mm3 [place] # (Auto) 0.61 H (0.24-0.36) K/mm3 Eos # (Auto) 0.28 (0.04-0.36) K/mm3 Baso # (Auto) 0.01 (0.01-0.08) K/mm3 PT 12.0 (9.7-12.0) SECONDS INR 1.08 APTT 27.8 (21.7-31.4) SECONDS D-Dimer, Quantitative 0.46 (0.19-0.50) mg/L Sodium (136-145) mEq/L Potassium (3.5-5.1) mEq/L Chloride (98-107) mEq/L Carbon Dioxide (21-32) mEq/L Anion Gap (5-15) BUN (7-18) mg/dL Creatinine (0.55-1.02) mg/dL Est Cr Clr Drug Dosing Estimated GFR (MDRD) (>60) mL/min BUN/Creatinine Ratio (14-18) Glucose (70-99) mg/dL Lactic Acid (0.4-2.0) mmol/L Calcium (8.5-10.1) mg/dL Total Bilirubin (0.2-1.0) mg/dL AST (15-37) U/L ALT (14-59) U/L Alkaline Phosphatase (46-116) U/L Troponin I (0.00-0.056) ng/mL C-Reactive Protein (<1.0) mg/dL NT-Pro-B Natriuret Pep (0-450) pg/mL Total Protein (6.4-8.2) g/dl Albumin (3.4-5.0) g/dl Globulin gm/dL Albumin/Globulin Ratio (1-2) Urine Color (Yellow) Urine Appearance (Clear) Urine pH (5.0-8.0) Ur Specific [place] (1.005-1.030) Urine Protein (Negative) Urine Glucose (UA) (Negative) Urine Ketones (Negative) Urine Occult Blood (Negative) Urine Nitrite (Negative) Urine Bilirubin (Negative) Urine Urobilinogen (0.2-1.0) Ur Leukocyte Esterase (Negative) Urine RBC (0-5) /hpf Urine WBC (0-5) /hpf Ur Squamous Epith Cells (0-5) /hpf Urine Bacteria (FEW) /hpf Urine Mucus (FEW) /hpf SARS-CoV-2 RNA (CLAUDE) Negative (NEGATIVE) 11/28/20 11/28/20 11/28/20 Range/Units 19:57 19:57 19:57 WBC (3.98-10.04) K/mm3 RBC (3.98-5.22) M/mm3 Hgb (11.2-15.7) gm/dl Hct (34.1-44.9) % MCV (79.4-94.8) fl MCH (25.6-32.2) pg MCHC (32.2-35.5) g/dl RDW Std Deviation (36.4-46.3) fL Plt Count (182-369) K/mm3 MPV (9.4-12.3) fl Neut % (Auto) (34.0-71.1) % Lymph % (Auto) (19.3-51.7) % [place] % (Auto) (4.7-12.5) % Eos % (Auto) (0.7-5.8) Baso % (Auto) (0.1-1.2) % Neut # (Auto) (1.56-6.13) K/mm3 Lymph # (Auto) (1.18-3.74) K/mm3 [place] # (Auto) (0.24-0.36) K/mm3 Eos # (Auto) (0.04-0.36) K/mm3 Baso # (Auto) (0.01-0.08) K/mm3 PT (9.7-12.0) SECONDS INR APTT (21.7-31.4) SECONDS D-Dimer, Quantitative (0.19-0.50) mg/L Sodium 143 (136-145) mEq/L Potassium 3.7 (3.5-5.1) mEq/L Chloride 106 (98-107) mEq/L Carbon Dioxide 26 (21-32) mEq/L Anion Gap 14.7 (5-15) BUN 24 H D (7-18) mg/dL Creatinine 1.3 H D (0.55-1.02) mg/dL Est Cr Clr Drug Dosing TNP Estimated GFR (MDRD) 39 (>60) mL/min BUN/Creatinine Ratio 18.5 H (14-18) Glucose 187 H (70-99) mg/dL Lactic Acid 1.8 (0.4-2.0) mmol/L Calcium 8.7 (8.5-10.1) mg/dL Total Bilirubin 2.3 H (0.2-1.0) mg/dL AST 20 (15-37) U/L ALT 44 (14-59) U/L Alkaline Phosphatase 104 (46-116) U/L Troponin I < 0.017 (0.00-0.056) ng/mL C-Reactive Protein 2.6 H* (<1.0) mg/dL NT-Pro-B Natriuret Pep 08848 H (0-450) pg/mL Total Protein 6.1 L (6.4-8.2) g/dl Albumin 2.9 L (3.4-5.0) g/dl Globulin 3.2 gm/dL Albumin/Globulin Ratio 0.9 L (1-2) Urine Color (Yellow) Urine Appearance (Clear) Urine pH (5.0-8.0) Ur Specific [place] (1.005-1.030) Urine Protein (Negative) Urine Glucose (UA) (Negative) Urine Ketones (Negative) Urine Occult Blood (Negative) Urine Nitrite (Negative) Urine Bilirubin (Negative) Urine Urobilinogen (0.2-1.0) Ur Leukocyte Esterase (Negative) Urine RBC (0-5) /hpf Urine WBC (0-5) /hpf Ur Squamous Epith Cells (0-5) /hpf Urine Bacteria (FEW) /hpf Urine Mucus (FEW) /hpf SARS-CoV-2 RNA (CLAUDE) (NEGATIVE) 11/28/20 Range/Units 21:55 WBC (3.98-10.04) K/mm3 RBC (3.98-5.22) M/mm3 Hgb (11.2-15.7) gm/dl Hct (34.1-44.9) % MCV (79.4-94.8) fl MCH (25.6-32.2) pg MCHC (32.2-35.5) g/dl RDW Std Deviation (36.4-46.3) fL Plt Count (182-369) K/mm3 MPV (9.4-12.3) fl Neut % (Auto) (34.0-71.1) % Lymph % (Auto) (19.3-51.7) % [place] % (Auto) (4.7-12.5) % Eos % (Auto) (0.7-5.8) Baso % (Auto) (0.1-1.2) % Neut # (Auto) (1.56-6.13) K/mm3 Lymph # (Auto) (1.18-3.74) K/mm3 [place] # (Auto) (0.24-0.36) K/mm3 Eos # (Auto) (0.04-0.36) K/mm3 Baso # (Auto) (0.01-0.08) K/mm3 PT (9.7-12.0) SECONDS INR APTT (21.7-31.4) SECONDS D-Dimer, Quantitative (0.19-0.50) mg/L Sodium (136-145) mEq/L Potassium (3.5-5.1) mEq/L Chloride (98-107) mEq/L Carbon Dioxide (21-32) mEq/L Anion Gap (5-15) BUN (7-18) mg/dL Creatinine (0.55-1.02) mg/dL Est Cr Clr Drug Dosing Estimated GFR (MDRD) (>60) mL/min BUN/Creatinine Ratio (14-18) Glucose (70-99) mg/dL Lactic Acid (0.4-2.0) mmol/L Calcium (8.5-10.1) mg/dL Total Bilirubin (0.2-1.0) mg/dL AST (15-37) U/L ALT (14-59) U/L Alkaline Phosphatase (46-116) U/L Troponin I (0.00-0.056) ng/mL C-Reactive Protein (<1.0) mg/dL NT-Pro-B Natriuret Pep (0-450) pg/mL Total Protein (6.4-8.2) g/dl Albumin (3.4-5.0) g/dl Globulin gm/dL Albumin/Globulin Ratio (1-2) Urine Color Yellow (Yellow) Urine Appearance Clear (Clear) Urine pH 7.0 (5.0-8.0) Ur Specific [place] 1.025 (1.005-1.030) Urine Protein Negative (Negative) Urine Glucose (UA) Negative (Negative) Urine Ketones Negative (Negative) Urine Occult Blood Negative (Negative) Urine Nitrite Negative (Negative) Urine Bilirubin Negative (Negative) Urine Urobilinogen 0.2 (0.2-1.0) Ur Leukocyte Esterase Trace H (Negative) Urine RBC 0-5 (0-5) /hpf Urine WBC 0-5 (0-5) /hpf Ur Squamous Epith Cells 0-5 (0-5) /hpf Urine Bacteria Occasional (FEW) /hpf Urine Mucus Not seen (FEW) /hpf SARS-CoV-2 RNA (CLAUDE) (NEGATIVE) Meds: Medications Generic Name Dose Route Start Last Admin Trade Name Freq PRN Reason Stop Dose Admin Sodium Chloride 10 ml 11/28/20 19:36 11/28/20 19:46 Sodium Chloride 0.9% 10 Ml Syringe FLUSH 10 ml ASDIRECTED PRN Administration Keep Vein Open Discontinued Medications Generic Name Dose Route Start Last Admin Trade Name Freq PRN Reason Stop Dose Admin Furosemide 80 mg 11/28/20 21:11 11/28/20 21:28 Furosemide 40 Mg/4 Ml Vial IVPUSH 11/28/20 21:12 80 mg NOW ONE Administration - Re-Assessments/Exams Free Text/Narrative Re-Assessment/Exam: 11/28/20 20:03 I ordered oxygen PRN, IV saline lock, EKG, CXR, labs and COVID 19 test. 11/28/20 20:09 Her EKG shows atrial fibrillation with RVR at 112, nonspecific intraventricular conduction delay, no change from prior EKG. 11/28/20 22:41 Her CXR shows CHF. Her WBC is elevated at 11.85. Her PT and PTT are normal. Her D-dimer is negative. Her creatinine is elevated at 1.3. Her glucose is 187. Her lactic acid is normal at 1.8. Her total bili is elevated at 2.3. Her troponin is negative. Her CRP was elevated at 2.6. Her BNP was elevated at 19,105. Her UA shows no UTI. She is COVID negative. She has been urinating. Her oxygen saturations were good here. I will discharge her home and have her take lasix 40mg daily and then go to 20mg daily. She sees Dr Emery . Departure - Departure Time of Disposition: 22:50 Disposition: Home, Self-Care 01 Condition: Good Clinical Impression: CHF exacerbation Qualifiers: Heart failure type: unspecified Qualified Code(s): I50.9 - Heart failure, unspecified Referrals: Kayla Newby MD [Ordering Only Provider] - 2 Days Forms: ED Department Discharge Additional Instructions: Take your lasix 40mg daily for 3 days and then 20mg daily. Follow up with Dr Acevedo in 2 days. Take your other medications as prescribed. Please return if you are worse. Sepsis Event Note (ED) - Evaluation Sepsis Screening Result: No Definite Risk - Focused Exam Vital Signs: Vital Signs Temp Pulse Resp BP Pulse Ox 11/28/20 22:18 53 L 16 129/78 94 L 11/28/20 19:43 98.5 F 109 H 25 H 142/52 H 90 L - My Orders Last 24 Hours: My Active Orders 11/28/20 19:36 Sodium Chloride 0.9% [Saline Flush] 10 ml FLUSH ASDIRECTED PRN Peripheral IV Insertion Adult [OM.PC] Stat 11/28/20 19:37 Cardiac Monitoring [RC] . DIRECTED Oxygen Therapy [RC] PRN Peripheral IV Care [RC] . DIRECTED 11/28/20 19:38 Chest 1V Frontal [CR] Stat - Assessment/Plan Last 24 Hours: My Active Orders 11/28/20 19:36 Sodium Chloride 0.9% [Saline Flush] 10 ml FLUSH ASDIRECTED PRN Peripheral IV Insertion Adult [OM.PC] Stat 11/28/20 19:37 Cardiac Monitoring [RC] . DIRECTED Oxygen Therapy [RC] PRN Peripheral IV Care [RC] . DIRECTED 11/28/20 19:38 Chest 1V Frontal [CR] Stat
[2020-11-28] MEDS ORDERED: Furosemide 40 MG/4 ML VIAL IVPUSH ONE (21:11)
--- NOTE | 2020-11-29 07:30 | CR ---
Chest: Frontal view of the chest of the chest was obtained. Comparison: Prior chest x-ray of 11/18/20. Heart is enlarged. Upper mediastinum is within normal limits. Diffuse increased pulmonary vessels are noted. Slight increased density within both lung bases most likely representing areas of atelectasis. Possible small bilateral pleural effusions are noted. Bony structures are osteopenic. Old healed right-sided rib fractures are noted. Impression: 1. Findings suspicious for diffuse CHF. 2. Probable bibasilar atelectasis with small pleural effusions. 3. Findings have slightly worsened when compared to prior chest x-ray. Diagnostic code #3 I agree with preliminary report from [facility], finalized on 11/28/20, 10:36 PM CDT, code 1
== END 2020-11-28 23:21 | disposition home or self-care (01) ==
LOC: JD.ED 19:31 → SUPCPDRO 19:31 → JD.ED 23:21
DX: I11.0 Hypertensive heart disease with heart failure (principal); I50.9 Heart failure, unspecified; I48.91 Unspecified atrial fibrillation; I25.10 Atherosclerotic heart disease of native coronary artery without angina pectoris; E78.00 Pure hypercholesterolemia, unspecified; K21.9 Gastro-esophageal reflux disease without esophagitis; E03.9 Hypothyroidism, unspecified; Z88.8 Allergy status to other drugs, medicaments and biological substances; Z79.01 Long term (current) use of anticoagulants; Z79.899 Other long term (current) drug therapy; Z20.822 Contact with and (suspected) exposure to COVID-19
CPT/HCPCS: 36415; 71045; 80053; 81001; 83605; 83880; 84484; 85025; 85379; 85610; 85730; 86140; 93005; 96374; 99285; J1940; U0002